=== PATIENT | female | born 1995 | race Caucasian/White ===

== ENCOUNTER 2023-08-21 18:54 | Outpatient (CLI) | payer BC, SELFPAY | END 2023-08-21 18:55 | disposition home or self-care (01) | PROVIDERS: PCP Family Medicine; Visit Provider Registered Nurse | DX: E04.9 Nontoxic goiter, unspecified (principal); Z13.220 Encounter for screening for lipoid disorders | CPT/HCPCS: 80061; 84439; 84443 ==

== ENCOUNTER 2023-08-28 15:38 | Outpatient (CLI) | payer BC, SELFPAY ==
--- NOTE | 2023-08-28 16:00 | CRLHL7_ITS ---
For Patients: As a result of the Century Cures Act, medical imaging exams and procedure reports are released immediately into your electronic medical record. You may view this report before your referring provider. If you have questions, please contact your health care provider. INDICATION: Nontoxic goiter TECHNIQUE: Conventional two-dimensional reaves-scale ultrasound of the thyroid gland. COMPARISON: None. FINDINGS: The thyroid gland is normal in size, shape and echogenicity. The right lobe measures 5.3 x 2.0 x 2.0 cm and the left lobe 5.3 x 1.8 x 1.5 cm. The isthmus measures 6 mm in thickness. IMPRESSION: Sonographically normal thyroid gland. Dictated by Darian Lopez MD @ 08/29/2023 9:22:06 AM (Electronically Signed)
== END 2023-08-28 15:39 | disposition home or self-care (01) ==
LOC: US 15:38
PROVIDERS: PCP Family Medicine; Visit Provider Registered Nurse
DX: E04.9 Nontoxic goiter, unspecified (principal)
CPT/HCPCS: 76536

== ENCOUNTER 2024-03-11 14:49 | Outpatient (CLI) | payer BC, SELFPAY ==
--- NOTE | 2024-03-11 15:00 | CRLHL7_ITS ---
For Patients: As a result of the Cures Act, medical imaging exams and procedure reports are released immediately into your electronic medical record. You may view this report before your referring provider. If you have questions, please contact your health care provider. INDICATION: First trimester scan, establish dates. COMPARISON: None. TECHNIQUE: Real-time reaves-scale imaging of the pelvis was performed. FINDINGS: Sonographic imaging demonstrates a single living intrauterine gestation. The embryo demonstrates a regular cardiac rate measuring 176 beats per minute. The embryo`s crown-rump length measurement of 2.5 cm corresponds to a gestational age of 9 weeks 1 day with a sonographic due date of 10/13/2024. There is a normal-appearing yolk sac. There are no gross abnormalities noted within the embryo at this early state of development. The gestational sac has a normal appearance. There is no evidence of a perigestational hemorrhage. The amount of fluid within the sac appears appropriate for gestational age. The cervix is closed. The myometrium appears normal. Bilateral simple ovarian cysts are present. There are no suspicious fluid collections noted in the cul-de-sac. IMPRESSION: Single living intrauterine with sonographic gestational age 9 weeks 1 day and sonographic due date of 10/13/2024. Dictated by Cesar Quiroz MD @ 03/12/2024 9:51:06 AM (Electronically Signed)
== END 2024-03-11 14:50 | disposition home or self-care (01) ==
PROVIDERS: PCP Family Medicine; Visit Provider Registered Nurse
DX: Z34.91 Encounter for supervision of normal pregnancy, unspecified, first trimester (principal); Z3A.09 9 weeks gestation of pregnancy
CPT/HCPCS: 76817; 86703; 86706; 86803; 86850; 86900; 86901; 87086; 87340; 87491; 87591

== ENCOUNTER 2024-03-11 16:01 | Outpatient (CLI) | payer BC, SELFPAY ==
[2024-03-11 23:12] LABS: Chlamydia DNA Amplified* NOT DETECTED (No Detected); GC DNA Amplified* NOT DETECTED (No Detected)
== END 2024-03-11 16:02 | disposition home or self-care (01) ==
PROVIDERS: PCP Family Medicine; Visit Provider Registered Nurse
DX: Z34.81 Encounter for supervision of other normal pregnancy, first trimester (principal)
CPT/HCPCS: 86592; 86703; 86704; 86706; 86762; 86787; 86803; 86850; 86900; 86901; 87086; 87340; 87491; 87591

== ENCOUNTER 2024-03-20 11:10 | Outpatient (CLI) | payer BC, SELFPAY | END 2024-03-20 11:11 | disposition home or self-care (01) | PROVIDERS: PCP Family Medicine; Visit Provider Obstetrics & Gynecology | DX: E03.8 Other specified hypothyroidism (principal) | CPT/HCPCS: 84439; 84443; 86376 ==

== ENCOUNTER 2024-04-29 15:08 | Outpatient (CLI) | payer BC, SELFPAY | END 2024-04-29 15:09 | disposition home or self-care (01) | LOC: NFLDREF 15:09 | PROVIDERS: PCP Family Medicine; Visit Provider Obstetrics & Gynecology | DX: E03.8 Other specified hypothyroidism (principal) | CPT/HCPCS: 84443 ==

== ENCOUNTER 2024-05-27 14:00 | Outpatient (CLI) | payer BC, SELFPAY ==
--- NOTE | 2024-05-27 14:00 | CRLHL7_ITS ---
For Patients: As a result of the Century Cures Act, medical imaging exams and procedure reports are released immediately into your electronic medical record. You may view this report before your referring provider. If you have questions, please contact your health care provider. INDICATION: Evaluate anatomy. COMPARISON: 03.11.24 TECHNIQUE: Real time reaves scale imaging of the fetus was performed as well as color Doppler analysis of the umbilical vessels. FINDINGS: Sonographic imaging demonstrates a single living intrauterine gestation. Fetus demonstrates a regular cardiac rate of 167 beats per minute. Fetus has a variable position. The placenta lies posteriorly without evidence of placenta previa. Placental edge is located 3.8 cm from the internal cervical os. Amniotic fluid volume appears normal. Single deepest vertical pocket: 4.6 cm. The cervix is closed and measures 4.9 cm in length. The composite ultrasound gestational age is calculated at 21 weeks 0 days with an estimated sonographic due date of 10/07/2024. The estimated weight is 375 grams which lies at the 79th %. The following biometric measurements were obtained: Biparietal diameter: 5.0 cm/21 weeks 1 day 84th% Head circumference: 18.3 cm/20 weeks 5 days 67th% Abdominal circumference: 15.8 cm/21 weeks 0 day 72nd% Femur length: 3.4 cm/20 weeks 3 days 55th% The HC/AC ratio measures: 1.15 range (1.06-1.25) On anatomic survey, there is a normal appearance of the cerebral ventricles, cavum septi pellucidi, cisterna magna and cerebellum. The nose, lips, and facial profile appear normal. The cervical, thoracic and lumbar spine are well visualized and appear normal. There is a normal four-chamber heart view and the left and right ventricular outflow tracts appear normal. The diaphragm appears normal. Incomplete fluid distention of the stomach. The kidneys and bladder also appear normal. There is a normal three-vessel cord and there is an eccentric cord insertion site. The four extremities appear normal. IMPRESSION: Sonographic gestational age 21 weeks 0 days and sonographic due date of 10/07/2024. Sonographic age 6 days ahead of the clinical age. Estimated weight 79th percentile. Abdominal circumference 72nd percentile. Incomplete fluid distention of the stomach. Remainder of the anatomic survey is normal. Short-term follow-up recommended. Dictated by Cesar Quiroz MD @ 05/28/2024 12:23:49 PM (Electronically Signed)
== END 2024-05-27 14:01 | disposition home or self-care (01) ==
LOC: US 14:01
PROVIDERS: PCP Family Medicine; Visit Provider Obstetrics & Gynecology
DX: Z34.92 Encounter for supervision of normal pregnancy, unspecified, second trimester (principal); Z3A.21 21 weeks gestation of pregnancy
CPT/HCPCS: 76805

== ENCOUNTER 2024-06-24 10:05 | Outpatient (CLI) | payer BC, SELFPAY ==
--- NOTE | 2024-06-24 10:15 | CRLHL7_ITS ---
For Patients: As a result of the Century Cures Act, medical imaging exams and procedure reports are released immediately into your electronic medical record. You may view this report before your referring provider. If you have questions, please contact your health care provider. INDICATION: stomach not seen on survey TECHNIQUE: Limited transabdominal two-dimensional reaves-scale ultrasound examination. COMPARISON: 05/27/2024 FINDINGS: There is a living fetus in cephalic lie with gestational age of 24 weeks 1 day by LMP and EDC of 10/13/2024. The heart rate is measured at 138 beats per minute and the rhythm appears regular. The amniotic fluid volume is within normal limits with single deepest pocket of 4.8 cm. The placenta is posterior and superior to the cervical os. There is no evidence of previa. The stomach is visualized appears within limits. The stomach appears to be on the same side heart. IMPRESSION: 1. Living fetus in cephalic lie with gestational age of 24 weeks 1 day by LMP and EDC of 10/13/2024. 2. Stomach visualized and within normal limits. Dictated by Darian Lopez MD @ 06/25/2024 7:53:56 AM (Electronically Signed)
== END 2024-06-24 10:06 | disposition home or self-care (01) ==
LOC: US 10:06
PROVIDERS: PCP Family Medicine; Visit Provider Obstetrics & Gynecology
DX: Z34.92 Encounter for supervision of normal pregnancy, unspecified, second trimester (principal); Z3A.24 24 weeks gestation of pregnancy
CPT/HCPCS: 76816

== ENCOUNTER 2024-07-21 09:41 | Outpatient (CLI) | payer BC, SELFPAY | END 2024-07-21 09:42 | disposition home or self-care (01) | PROVIDERS: PCP Family Medicine; Visit Provider Obstetrics & Gynecology | DX: Z34.83 Encounter for supervision of other normal pregnancy, third trimester (principal); Z67.41 Type O blood, Rh negative | CPT/HCPCS: 86592; 86850; J2791 ==

== ENCOUNTER 2024-08-11 04:59 | Emergency (ER) | payer BC, SELFPAY ==
--- OUTSIDE RECORDS SUMMARY | 2024-08-11 05:01 | XMS_ITS | Clinical Summary ---
Author Organization [facility] Address [place], [place] [address] Care Team Providers Care Machine Setter Automatic Name Role Phone Pcp, No Primary Care Provider Unavailabl e Allergies Active Allergy Reactions Criticality Noted Date Comments Fluoxetine Other - Describe In Comment Field Medium 08/15/2019 Suicidal thoughts Latex Rash 12/18/2006 Medications PNV with Ca,No.73-Iron-FA (TRINATE) 28 mg iron- 1 mg tablet Take 1 Tablet by mouth once daily. 08/08/2023 Active Active Problems Problem Noted Date Diagnosed Date Vitamin D deficiency 03/19/2020 Overview (08/08/2023): 03/16/2020: Vitamin D total 21, this is too low and may be contributing to decreased activity and possible depressive symptoms -We will treat with ergocalciferol 50,000 units weekly and recheck in 1 year Major depressive disorder, r ecurrent episode, in partial remission with anxious distress 09/26/2019 Panic attacks 09/26/2019 Class 1 obesity due to exces s calories without serious comorbidity with body mass index (BMI) of 34.0 to 34.9 in adult 09/08/2019 MDD (major depressive disord er), recurrent episode, moderate 11/03/2018 Moderate episode of recurrent major depressive d isorder 11/03/2018 Calculus of gallbladder with out cholecystitis without obstruction 04/15/2015 Comments Yes Resolved Problems Problem Noted Date Diagnosed Date Resolved Date Major depressive disorder, r ecurrent episode, mild 11/10/2014 10/31/2018 Adjustment reaction 10/19/2014 11/04/19 Health supervision of other healthy infant or child receiving care 07/01/2007 10/29/2015 Encounters Date Type Department Care Team Description 06/24/2024 Orders Only [facility] Scanner 1 scan: (1-Ord) [facility], OB F/U, 06/24/2024 05/27/2024 Orders Only [facility] Scanner 1 scan: (1-Ord) [facility], OB >14 WEEKS, 05/27/2024 from Last 3 Months Immunizations Name Administration Dates Next Due AMB Influenza, IIV3 (Age >=3 years)(Flu Clinic Only) 06/26/2008 DTP-HIB 03/03/1996,01/11/1996,1995 DTaP 09/06/2000,02/03/1997 HIB PRP-OMP (PedvaxHIB) 02/03/1997 Hep B (Hepatitis B (Adult) R ecombinant Adjuvanted) 10/12/2020,07/28/2020 Hepatitis A (Peds) 08/14/2011,01/05/2011 Hepatitis B (Peds) 03/03/1996,1995, 996 Human Papilloma Virus Vaccine 01/05/2011, 011,06/09/2010 Inactivated Polio Vaccine 09/06/2000 Influenza, IIV3 (Age 6-35 mos) 05/11/2011 Influenza, IIV3 (Age >=3 years) 05/07/20 13,05/07/2012,05/11/2011,06/09,06/26/2008,07/01/2007,09/05/2006 ,06/29/2003 Influenza, IIV4 05/16/2022,,07/09/2020,08/01,07/03/2017,06/08/2016,04/15/2015 MENINGOCOCCAL VACCINE 2 VIAL 2MO-55YO (MENVEO) 02/19/2014 MMR 11/04/1996 MMRV 07/01/2007 Oral Polio Vaccine 03/03/1996,01/11/1996, 996 Td (Age >=7 Years) 01/09/2019 Tdap 07/01/2007 Tuberculin (PPD) 01/10/2016, 6,01/11/2015,07/31 Varicella Vaccine 11/04/1996 Family History Medical History Relation Name Comments Alcoholism Father recovered Good Health Father Lung cancer Maternal Grandfather with me ts to brain Good Health Mother Relation Name Status Comments Brother Alive Father Alive Maternal Grandfather Maternal Grandmother Alive Mother Alive Other Paternal Grandfather Paternal Grandmother Sister Alive Social History Tobacco Use Types Packs/Day Years Used Date Smoking Tobacco: Never Passive Smoke Exposure: Never Smokeless Tobacco: Never Tobacco Cessation:Counseling Given: Yes Alcohol Use Standard Drinks/Week Comments Not Currently 0 (1 standard drink = 0.6 oz pur e alcohol) rarely PHQ-2 Answer Date Recorded PHQ-2 TOTAL SCORE 2 08/08/2023 Social Connections Answer Date Recorded Frequency of Communication with Friends and Fami ly Not on file 08/01/2023 Financial Resource Strain Answer Date R ecorded Difficulty of Paying Living Expenses Not on file 07/30/2021 Difficulty of Paying Living Expenses Not on file 07/30/2021 Interpersonal Safety Answer Date Record ed Are you being hit, kicked, p ushed or yelled at (see row info)? No 08/02/2023 Interpersonal Safety Abuse 12 - 18 Not on file 08/02/2023 Interpersonal Safety Ambulatory Vulnerability No t on file 08/02/2023 Comments Yes Sex and Gender Information Value Date Recorded Sex Assigned at Not on file Legal Sex Female 5:21 AM [employer] Gender Identity Not on file Sexual Orientation Not on file Occupation Industry Job Start Date Job End Date Not on file Not on file Not on file Not on file unemployed Not on file Not on file Not on file Obstetrics History Para Term AB IAB SAB Ectopic Multiple Livin g Live Births 1 0 0 0 0 0 0 0 0 0 Date Outcome GA Total Labor Labor/2nd/3rd Weight Sex Type Anes PTL Mikaela A1 A5 Name Clin Current Last Filed Vital Signs Vital Sign Reading Time Taken Comments Blood Pressure 118/70 08/08/2023 3:14 PM [employer] Pulse 74 08/08/2023 3:14 PM [employer] Temperature 37.2 C (99 F) 08/02/2023 4:20 AM [employer] Respiratory Rate 20 08/02/2023 4:20 AM [employer] Oxygen Saturation 100% 08/02/2023 6:00 AM [employer] Inhaled Oxygen Concentration - - Weight 107.5 kg (236 lb 14.4 oz) 08/08/2023 3:14 PM [employer] Height 175.3 cm (5' 9) 08/08/2023 3:14 PM [employer] Body Mass Index 34.98 08/08/2023 3:14 PM [employer] Plan of Treatment Health Maintenance Due Date Last Done Comments HIV for age 15-65 2010 Hepatitis C screening for age 18-79 2013 COVID-19 vaccine series ( season) 2024 09/27/2020, 09/01/2020 Influenza for age 9-49 03/30/2024 2, 05/24/2021, 07/09/2020, Additional history exists BMI (ht and wt on same day) for age 18+ 08/08/2024 08/08/2023, 08/01/2019, 06/06/2019, Additional history exists Depression screening for age 12+ 08/08/2024 08/08/2023, 08/04/2019, 08/01/2019, Additional history exists Pap test for age 21-65 05/15/2025 2 (Verified in Care Everywhere or Patient Record), 07/03/2017 Tetanus booster 01/09/2029 01/09/2019, 07/01/2007 RSV vaccine for adults or (1 - 1-dose 75+ series) 2070 Tdap Completed 07/01/2007 Pneumococcal series for age 6-49 Aged Out No longer eligible based on patient's age to complete this topic Procedures Procedure Name Priority Date/Time Associated Diagnosis Comments SCAN-ULTRASOUND REPORT 06/24/2024 12:00 AM [employer] SCAN-ULTRASOUND REPORT 05/27/2024 12:00 AM CDT INDUSTRY CONSULTANT THIN PREP PAP SCREEN IMAGED Routine 07/03/2017 8:20 AM [employer] Pap smear for cervical cancer screening from Last 3 Months or Most Recently Relevant to Health Maintenance Results * SCAN-ULTRASOUND REPORT (06/24/2024 12:00 AM [employer]) Only the most recent of2 resultswithin the time period is included. Anatomical Region Laterality Modality Other us Scanner OTHER Final Result * INDUSTRY CONSULTANT THIN PREP PAP SCREEN IMAGED (07/03/2017 8:20 AM [employer]) Case Report Gynecologic Cytology Report Case: [id number] Authorizing Provider: Lexx Murguia, Collected: 07/03/2017 0820 Ordering Location: [facility] Received: 07/03/2017 0957 Clinic First Screen: Jessica Wilson Specimen: INDUSTRY CONSULTANT ThinPrep Vial Screening, Cervical 07/11/2017 3:33 PM [employer] [facility] INTERPRETATION/ RESULT NEGATIVE FOR INTRAEPITHELIAL LESION OR MALIGNANCY (NIL) (none) 07/11/2017 3:33 PM [employer] [facility] [employer] [facility] IMEN ADEQUACY Satisfactory for evaluation Endocervical component present 07/11/2017 3:33 PM [employer] [facility] HPV REQUEST HPV if ASCUS 07/11/2017 3:33 PM [employer] [facility] Date of LMP 06/12/17 07/11/2017 3:33 PM [employer] [facility] Last Pap Date none 07/11/2017 3:33 PM [employer] [facility] Last Pap Result First Pap/Unknown 3:33 PM [employer] [facility] Abnormal Pap or [place] Bx in last 5 years No 07/11/2017 3:33 PM [employer] [facility] Menstrual Status Regular Periods 07/11/2017 3:33 PM [employer] [facility] [place] Bx Done Today No 07/11/2017 3:33 PM [employer] [facility] Additional Information None given 07/11/2017 3:33 PM [employer] [facility] Automated Review Successful 07/11/2017 3:33 PM [employer] [facility] Comment:Specimen processed s uccessfully by automated dispatch officer device, ThinPrep Imaging System, [employer] Note The pap test is a screening technique, not a diagnostic procedure. It is used primarily to screen for squamous cancers and precursor lesions. Published studies have shown that it is subject to both false negative and false positive results. The pap test should not be used as the sole means to diagnose or exclude pre-malignant and malignant lesions. Interpreted at [facility] ([facility], [facility], [facility], [facility], [facility], [facility], [facility]) 07/11/2017 3:33 PM [employer] [facility]ORY Other (Cervical) 07/03/2017 8:20 AM [employer] 07/03/2017 9:57 AM [employer] us Lexx Murguia MD PATHOLOGY/CYTOLOGY Fin al Result [facility] [address] [place] [address], from Last 3 Months or Most Recently Relevant to Health Maintenance Insurance [facility] [address] [place] [id number] [facility] ADVANTAGE WORKERS COMP Member Subscriber Plan / Payer (Ef fective 2015-Present) Name:Kita GOTTLIEB Relation to Subscriber:Employee Name:[employer] Date of :2000 (Home) Address: [address] [place] [address] Payer ID:Not on file Group ID:Not on file Type:Not on file Address: [place] [id number] Advance Directives * Full Code (Latest Code Status on File) Date Activated Date Inactivated Comments 04/27/2015 1:38 PM 04/27/2015 9:54 PM * Full Code Date Activated Date Inactivated Comments 04/27/2015 9:32 AM 04/27/2015 1:38 PM Care Teams Machine Setter Automatic Relationship Specialty Start Date End Date Pcp, No . PCP - General 07/13/23
--- OUTSIDE RECORDS SUMMARY | 2024-08-11 05:01 | XMS_ITS ---
Author Organization [facility] Address [address] [place] [address] Care Team Providers Care Director Nurses' Registry Name Role Phone Unavailable Unavailable Unavailable Surgery Details Not on file Complications Check Surgery Details section. Procedure Estimated Blood Loss Check Surgery Details section. Procedure Findings Check Surgery Details section. Procedure Specimens Taken Check Surgery Details section.
--- OUTSIDE RECORDS SUMMARY | 2024-08-11 05:01 | XMS_ITS | Continuity of Care Document ---
Author Name [facility] User [email or web address] Address Unknown Organization Unknown Address Unknown Procedures FILTER APPLIED:Only known Procedures with Onset Date within the last 5 years Procedure Date Procedure Provider Additional Inform ation Status US EXAM OF HEAD AND NECK (06479) Completed ASSAY OF FREE THYROXINE (89781) Completed LIPID PANEL (14821) Comp leted ASSAY THYROID STIM HORMONE (06234) Completed Encounters FILTER APPLIED:Only known Encounters with Admission Date within the last 5 years Encounter Location Admission Discharge Billing Code [facility]
--- OUTSIDE RECORDS SUMMARY | 2024-08-11 05:01 | XMS_ITS | Clinical Summary ---
Author Organization [facility] Address [address] [place] [address] Care Team Providers Care Occupational Health And Safety Manager Name Role Phone Billy Boudreaux D.O. Primary Care Provider [phone]- [phone] Source Comments Patient records contain information from all sites at [facility]. For routine questions regarding patient records, call [phone] during business hours, M-F 8:00 AM - 5:00 PM Central Time. Record requests for emergency care only can be directed to [phone] at any time.[facility] Allergies Active Allergy Reactions Criticality Noted Date Comments Fluoxetine Other (see comments) Medium 08/15/2019 Suicidal thoughts Latex Rash Medium 12/18/2006 Medications vit,louis [id number] 28 mg iron- 1 mg tablet Take 1 tablet by mouth daily. 08/08/2023 Active venlafaxine XR (Effexor-XR) 150 mg 24 hr capsule Take 150 mg by mouth every morning. 02/09/2024 Active doxylamine (Unisom) 25 mg tablet Take by mouth at bedtime as needed for sleep. Active pyridoxine, vitamin B6, (vitamin B-6) 50 mg tablet Take 50 mg by mouth daily. Active Active Problems Problem Noted Date Diagnosed Date Deficiency Vitamin D 03/19/2020 Overview (03/31/2021): 03/16/2020: Vitamin D total 21, this is too low and may be contributing to decreased activity and possible depressive symptoms -We will treat with ergocalciferol 50,000 units weekly and recheck in 1 year Depression Major Recurrent Moderate 11/03/2018 Immunizations Name Administration Dates Next Due 4vHPV (discontinued) 01/05/2011,08/29/2010,06/09 DTP / Hib 03/03/1996,01/11/1996,1995 DTaP (Infanrix, Tripedia) 09/06/2000,02/03/1997 HepA Pediatric/Adolescent 08/14/2011,01/05/2011 HepB Adult (HEPLISAV-B) 10/12/2020,07/28/2020 HepB Pediatric/Adolescent 03/03/1996,1995, 1995 Hib (PRP-OMP) (PedvaxHIB) 02/03/1997 IPV 09/06/2000 Influenza TIV (IM) 05/07/2013, 2,05/11/2011, 010,06/26/2008,07/01/2007,09/05/2006, Influenza, Seasonal, Injectable 05/07/20 13,05/07/2012,06/09/2010, 008,09/05/2006,07/15/2003 MCV4 (Menactra)(Discontinued) 02/19/2014, 014 MCV4 (Menveo) 02/19/2014,02/19/2014 MMR 11/04/1996 MMRV 07/01/2007 OPV 03/03/1996,01/11/1996,1995 PPD Test 01/10/2016, 6,12/21/2015, 016,01/11/2015,01/11/2015,07/31/1996,08/1996 SARS-COV-2 (COVID-19) - PFIZ ER (Discontinued)(12 years or older) 09/27/2020,09/01/2020 Td (Adult), adsorbed 01/09/2019 Tdap 07/01/2007 EMERITA 11/04/1996 influenza trivalent vaccine (6 months and older)(PF) 05/11/2011 influenza vaccine quad (FLUZONE/FLUARIX) (6 months and older)(PF) 05/16/2022,05/24/2021,07/09/2020, 020,07/03/2017,06/08/2016,04/15/2015 Family History Medical History Relation Name Comments ADD Brother Grant Alcohol abuse Brother Grant My brother has struggled with alcohol and drug abuse but has been sober for 10 months Drug abuse Brother Grant Struggled with drug abuse but has been sober for 10 months Alcohol abuse Father Armin My dad has str uggled with alcoholism for most of his life but he has been sober for 6 years Drug abuse Father Armin History of drug abuse but has been sober for 6 years Migraines Father Armin Suffered from m igraines for 6 years Sleep apnea Father Armin He has used a C -PAP machine for 5 years Other cancer Father's Brother Stephane Diagnosed w ith throat cancer in 2016 Ovarian cancer Father's Sister Paz Diagnosed 2016 Alcohol abuse Maternal Grandfather Cj Coronary artery disease Maternal Grandfather Cj from a heart attack in the late 1979 s Alcohol abuse Paternal Grandfather Praveen Lung cancer Paternal Grandfather Praveen Diagnos ed and past away from lung cancer in 2005 Dementia Paternal Grandmother Fallon She suf fered from dementia for several years and from it. Anxiety disorder Sister Lawanda Depression Sister Lawanda Relation Name Status Comments Brother Grant Funez Father's Brother Stephane Father's Sister Paz Maternal Grandfather Cj Paternal Grandfather Praveen Paternal Grandmother Fallon Sister Lawanda Social History Tobacco Use Types Packs/Day Years Used Date Smoking Tobacco: Never Smokeless Tobacco: Never Tobacco Cessation:Counseling Given: Not Answered Alcohol Use Standard Drinks/Week Comments Yes 1 (1 standard drink = 0.6 oz pur e alcohol) occasional [facility] Utilities Answer Date Recorded In the past 12 months has e [employer], gas, oil, or water [employer] threatened to shut off services in your home? No 02/28/2024 Humiliation, Afraid, Rape, and Kick questionnair e Answer Date Recorded Within the last year, have y ou been afraid of your partner or ex-partner? No 05/15/2022 Within the last year, have y ou been humiliated or emotionally abused in other ways by your partner or ex-partner? No Within the last year, have y ou been kicked, hit, slapped, or otherwise physically hurt by your partner or ex-partner? No 05/15/2022 Within the last year, have y ou been raped or forced to have any kind of sexual activity by your partner or ex-partner? No 05/15/2022 Social Connection and Isolat ion Panel [NHANES] Answer Date Recorded In a typical week, how many times do you talk on the phone with family, friends, or neighbors? More than three times a week 05/15/2022 How often do you get togethe r with friends or relatives? Once a week 05/15/2022 How often do you attend chur or methodist services? 1 to 4 times per year 05/15/2022 Do you belong to any clubs o r organizations such as rastafarian groups, unions, fraternal or athletic groups, or school groups? Yes 05/15/2022 How often do you attend meet ings of the clubs or organizations you belong to? More than 4 times per year 05/15/2022 Are you , , di vorced, , never , or living with a partner? Living with partner 05/15/2022 AUDIT-C Answer Date Recorded Q1: How often do you have a drink containing alc ohol? 2-4 times a month 05/15/2022 Q2: How many drinks containi ng alcohol do you have on a typical day when you are drinking? 3 or 4 05/15/2022 Q3: How often do you have si x or more drinks on one occasion? Less than monthly 05/15/2022 Overall Financial Resource Strain (CARDIA) Answe r Date Recorded How hard is it for you to pa y for the very basics like food, housing, medical care, and heating? Not hard at all 05/15/2022 PHQ-2 Answer Date Recorded PHQ-2 Score 0 08/17/2021 [facility] of Occupat ional Health - Occupational Stress Questionnaire Answer Date Recorded Do you feel stress - tense, restless, nervous, or anxious, or unable to sleep at night because your mind is troubled all the time - these days? Rather much 05/15/2022 Exercise Vital Sign Answer Date Recorde d On average, how many days pe r week do you engage in moderate to strenuous exercise (like a brisk walk)? 5 days 02/28/2024 On average, how many minutes do you engage in exercise at this level? 30 min 02/28/2024 Hunger Vital Sign Answer Date Recorded Within the past 12 months, y ou worried that your food would run out before you got the money to buy more. Never true 02/28/20 24 Within the past 12 months, t he food you bought just didn't last and you didn't have money to get more. Never true 02/28/2024 PRAPARE - Transportation Answer Date Re corded In the past 12 months, has l ack of transportation kept you from medical appointments or from getting medications? No 07/2023 In the past 12 months, has l ack of transportation kept you from meetings, work, or from getting things needed for daily living? No 02/28/2024 Depression Answer Date Recor ded PHQ-9 Total Score (max 27) 2 08/17 Nutrition Answer Date Recorded On average, how many serving s of fruits and vegetables do you eat per day (serving size is equal to 1 cup or approximately the size of a tennis ball)? 3-5 02/28/2024 Dental Answer Date Recorded Dental: Regular Dentist Yes 05/15/20 Employment Answer Date Recorded Employment status Employed and actively working without restrictions 02/28/2024 Housing Stability Answer Date Recorded What is your living situation today? I have a [facility] place to live 02/28/2024 Education Answer Date Recorded What is the highest level of school you have completed or the highest degree you have received? 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 Gender Identity Female 01/24/2021 8:38 AM CDT Sexual Orientation Not on file Last Filed Vital Signs Vital Sign Reading Time Taken Comments Blood Pressure 121/81 05/15/2022 2:17 PM CDT Pulse 62 05/15/2022 2:17 PM CDT Temperature 36.6 C (97.8 F) 05/15/2022 2:17 PM CDT Respiratory Rate 16 12/10/2020 9:16 AM CDT Oxygen Saturation 100% 12/10/2020 9:16 AM CDT Inhaled Oxygen Concentration - - Weight 101 kg (222 lb 0.1 oz) 05/15/2022 2:17 PM CDT Height 173 cm (5' 8.11) 05/15/2022 2:17 PM CDT Body Mass Index 33.65 05/15/2022 2:17 PM CDT Plan of Treatment Health Maintenance Due Date Last Done Comments HIV Screening 1995 Hepatitis C Screening 1995 Depression Monitoring (PHQ-9) 12/15/2021 08/17/2021 COVID-19 Vaccine ( season) 2024 09/27/2020, 09/01/2020 Influenza Vaccine (#1) 2024 , 05/16/2022, 05/24/2021, Additional history exists Depression Monitoring (PHQ-9 for quality tracking) 07/30/2024 Cervical/Vaginal Cancer Screening 05/15/2025 05/15/2022, 05/15/2022, 03/19/2020 DTaP,Tdap,and Td Vaccines (8 - Td or Tdap) 01/09/2029 01/09/2019, 07/01/2007, 09/06/2000, Additional history exists IPV Vaccines Completed 09/06/2000, 11/1995, 01/11/1996, Additional history exists Varicella Vaccines Completed 07/01/2007, 11/04/1996 HPV Vaccines Completed 01/05/2011, 08/01, 06/09/2010 Hepatitis B Vaccines Completed 10/12/2020, 07/28/2020, 03/03/1996, Additional history exists Pneumococcal vaccine (0-49 years) Aged Out No longer eligible based on patient's age to complete this topic Procedures Procedure Name Priority Date/Time Associated Diagnosis Comments HPV WITH GENOTYPING, PCR, THINPREP Routine 05/15/2022 2:47 PM CDT from Last 3 Months or Most Recently Relevant to Health Maintenance Results * HPV with Genotyping, PCR, ThinPrep (05/15/2022 2:47 PM CDT) HPV with Genotyping, ThinPrep, PCR Negative Negative 05/16/2022 3:32 PM CDT MKTO Comment: Negative for high risk HPV by nucleic acid amplification. The following high risk HPV types were not detected: 16, 18, 31, 33, 35, 39, 45, 51, 52, 56, 58, 59, 66, and 68 This result does not rule out HPV in the patient, as the sensitivity of the test depends on the timing of the specimen collection and the quality of the specimen. Result should be correlated with patient's history, clinical presentation, and EXHIBITOR SALES cytology report. 05/15/2022 2:47 PM CDT 05/16/2022 7:46 AM CDT us Natalia Cheung M.D. LAB MICROBIOLOGY - GENER AL ORDERABLES Final Result [facility] [address] [place] [address], [facility] MKTO [facility] [place] [address] [place] [id number] from Last 3 Months or Most Recently Relevant to Health Maintenance Insurance [facility] Care Teams Occupational Health And Safety Manager Relationship Specialty Start Date End Date Billy Boudreaux D.O. [address] [place] [place] [phone] PCP - General 04/27/23
--- OUTSIDE RECORDS SUMMARY | 2024-08-11 05:01 | XMS_ITS | Referral Summary ---
Author Organization [facility] Address [address] [place] [address] Care Team Providers Care Casino Floor Walker Name Role Phone Billy Boudreaux D.O. Primary Care Provider [phone]- [phone] Source Comments Patient records contain information from all sites at [facility]. For routine questions regarding patient records, call [phone] during business hours, M-F 8:00 AM - 5:00 PM Central Time. Record requests for emergency care only can be directed to [phone] at any time.[facility] Allergies Active Allergy Reactions Criticality Noted Date Comments Fluoxetine Other (see comments) Medium 08/15/2019 Suicidal thoughts Latex Rash Medium 12/18/2006 Medications vit,louis [id number] 28 mg iron- 1 mg tablet Take [...] (FLUZONE/FLUARIX) (6 months and older)(PF) 05/16/2022,05/24/2021,07/09/2020, 020,07/03/2017,06/08/2016,04/15/2015 Social History Tobacco Use Types Packs/Day Years Used Date Smoking Tobacco: Never Smokeless Tobacco: Never Tobacco Cessation:Counseling Given: Not Answered Alcohol Use Standard Drinks/Week Comments Yes 1 (1 standard drink = 0.6 oz pur e alcohol) occasional [facility] Utilities Answer Date Recorded In the past 12 months has e [employer], [employer], oil, or water [employer] threatened to shut off services in your [...] 05/15/2022 How often do you attend chur ch or christianity services? 1 to 4 times per year 05/15/2022 Do you belong to any clubs o r organizations such as episcopal groups, unions, fraternal or athletic groups, or [...] Answer Date Recorded PHQ-2 Score 0 08/17/2021 [facility] Occupat ional Health - Occupational Stress [...] your living situation today? I have a [facility] place to live 02/28/2024 Education Answer Date Recorded What is the highest level of school you have completed or the highest degree you have received? 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 05/15/2022 2:47 PM CDT 05/16/2022 7:46 AM CDT us Natalia Cheung M.D. LAB MICROBIOLOGY - GENER AL ORDERABLES Final Result [facility] [address] [place] [address], [place] MKTO [facility] [place] [address] [place] [address] from Last 3 Months or Most Recently Relevant to Health Maintenance Insurance [facility] Care Teams Casino Floor Walker Relationship Specialty Start Date End Date Billy Boudreaux D.O. [address] [place] [address] PCP - General 04/27/23
[2024-08-11 05:02] VITALS: BP 135/82; PULSE 82; RESP 18; TEMP 36.1; O2SAT 98; BMI 32.5
--- NOTE | 2024-08-11 05:26 | ED.GENADULT ---
HPI - General Adult General Date Seen: 08/11/24 Chief complaint: Nausea/Vomiting Stated complaint: Vomiting x3 days 31wks preg Time Seen by Provider: 08/11/24 05:13 History of Present Illness HPI narrative: Patient is a 29-year-old presenting at 31 weeks for vomiting. She has had problems with vomiting throughout this but it had been reasonably well controlled on Reglan at home. She says she has been under significant stress of late, her has had some infidelity and is no longer living with her at this time. She notes this is increasing her anxiety, she does take venlafaxine but is having more problems with anxiety and sleep and also with vomiting. She has not had abdominal pain, fevers, urinary symptoms. She has had 1 episode of diarrhea. She is concerned about dehydration and health of her baby. She typically uses Unisom to help with sleep but she says she has not been able to keep that down the past few days so she has only slept a few hours for the past couple of nights. She is here tonight with her sister. No alcohol or substance use. Related Data Home Medications ?Medication ?Instructions ?Recorded ?Confirmed docosahexaenoic acid 200 mg mg PO 08/21/23 08/04/24 capsule ( DHA) doxylamine succinate 25 mg tablet 25 mg PO QHS 03/11/24 08/04/24 (Unisom (doxylamine)) aspirin 81 mg tablet,delayed 81 mg PO QDAY 04/29/24 08/04/24 release omeprazole magnesium 20 mg 20 mg PO QDAY 06/24/24 08/04/24 tablet,delayed release (Prilosec OTC) Previous Rx's ?Medication ?Instructions ?Recorded venlafaxine 150 mg 150 mg PO QAM #90 caps 03/11/24 capsule,extended release 24 hr levothyroxine 25 mcg tablet 25 mcg PO QDAY #30 tabs 05/02/24 metoclopramide HCl 10 mg tablet 10 mg PO Q6H PRN nausea and 07/10/24 (Reglan) vomiting #60 tabs Allergies Allergy/AdvReac Type Severity Reaction Status Date / Time fluoxetine Allergy Severe Depression Verified 08/04/24 11:43 Latex, Natural Rubber AdvReac Severe Rash Verified 08/04/24 11:43 Review of Systems Status of ROS: Reports: 6 or more systems reviewed and unremarkable except as noted in History and below PFSH PFS Medical History Enlarged thyroid ?E04.9 - Nontoxic goiter, unspecified (ICD-10) Pyelonephritis ?N12 - Tubulo-interstitial nephritis, not specified as acute or chronic (ICD-10) Surgical History History of cholecystectomy ?Z90.49 - Acquired absence of other specified parts of digestive tract (ICD-10) Morrison teeth extracted ?K08.409 - Partial loss of teeth, unspecified cause, unspecified class (ICD-10) Family History Aunt Ovarian cancer Grandfather Lung cancer Alcohol dependence Cardiovascular disease Grandmother Alzheimers disease Dementia Father Alcohol dependence Sleep apnea Migraines Drug dependence Brother Alcohol dependence Drug dependence ADD (attention deficit disorder) Uncle Alcohol dependence Sister Depression Anxiety Social History 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, 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 What is your current living situation?: I presently have a place to live Problems where you live: no known problems In the past 12 months, utilities in danger of being shut off: no In past 12 months, lack of transportation kept you from medical appts, meetings, work, or getting things needed for daily living: no In the past 12 mos, have been you worried that your food would run out before you had money to buy more?: never true In the past 12 mos, the food you bought just didn't last and you didn't have money to buy more?: never true Do you use any of these nicotine containing products: None How often do you have a drink containing alcohol: never How often do you have six or more drinks on one occasion: Never AUDIT-C Alcohol total score: 0 Non-prescribed substance use: denies use How often does anyone, including family, friends and others, physically hurt you: never How often does anyone, including family, friends and others, insult or talk down to you: rarely How often does anyone, including family, friends and others, threaten you with harm: never How often does anyone, including family, friends and others, scream or curse at you: rarely service: No Health Related Social Needs: Other personal risk factors, not elsewhere classified (Z91.89) Exam Narrative: Exam Narrative: Vital signs reviewed In general, alert, nontoxic young woman. Head: Normocephalic, atraumatic. Eyes: Sclera clear. Pupils equal and reactive. ENT: Mucous membranes moist. Neck: Supple without adenopathy. Heart: Regular rate and rhythm without murmur. Lungs: Clear. No increased work of breathing, crackles or wheezes. Abdomen: Soft, nontender to palpation. Gravid. Extremities: Well perfused, pulses intact. No significant edema. Neurologic: Alert, conversant. Speech fluent, face symmetric. Moves all extremities equally. Skin: Warm, dry well perfused. Affect: Normal. Const: Vital Signs, click to edit/add: Vital Signs - 24 hr 08/11/24 05:02 Temperature 97.0 F L Pulse Rate [Left P ulse Oximeter] 82 Respiratory Rate 18 Blood Pressure [Ri ght Upper Arm] 135/82 Pulse Oximetry 98 Oxygen Delivery Me thod Room Air Documenting provider has reviewed patient's vital signs: yes Course Course ED Course: We placed an IV here. Checked a metabolic panel which is normal. She had a L of normal saline as well as 10 mg of metoclopramide. She is feeling improved. She was evaluated by OB. She was able to rest a little bit, would like to go home because she feels like she could sleep. Has not provided a UA yet. She does not have any urinary symptoms, vital signs and lab work is reassuring. Discussed that if she develops any new symptoms such as dysuria, fever she should have a UA checked. Otherwise, she can continue to use her Reglan. Discussed finding a therapist that she can talk with to help her through this stressful time. She can talk with [facility] about possible medication changes for anxiety. At this time I do not want to make changes without their input. Return any time for worsening or uncontrolled symptoms. Vital Signs Vital signs: Initial Vital Signs Temperature 97.0 F L 08/11/24 05:02 Temperature Source Temporal Artery Scan 08/11/24 05:02 Pulse Rate 82 08/11/24 05:02 Pulse Rhythm Regular 08/11/24 05:02 Respiratory Rate 18 08/11/24 05:02 Blood Pressure 135/82 08/11/24 05:02 Blood Pressure Mean 99 08/11/24 05:02 Blood Pressure Position Sitting 08/11/24 05:02 Pulse Oximetry 98 08/11/24 05:02 Oxygen Delivery Method Room Air 08/11/24 05:02 Vital Signs Temperature 97.0 F L 08/11/24 05:02 Pulse Rate 82 08/11/24 05:02 Respiratory Rate 18 08/11/24 05:02 Blood Pressure 135/82 08/11/24 05:02 Pulse Oximetry 98 08/11/24 05:02 Oxygen Delivery Method Room Air 08/11/24 05:02 Temperature 97.0 F L 08/11/24 05:02 Pulse Rate 82 08/11/24 05:02 Respiratory Rate 18 08/11/24 05:02 Blood Pressure 135/82 08/11/24 05:02 Pulse Oximetry 98 08/11/24 05:02 Oxygen Delivery Method Room Air 08/11/24 05:02 Medications Administered Medications: Discontinued Medications Generic Name Dose Route Start Last Admin Trade Name Freq PRN Reason Stop Dose Admin Sodium Chloride 1,000 mls @ 1,000 mls/hr 08/11/24 05:30 08/11/24 06:19 0.9 % Sodium Chloride 1000 Ml IV 08/11/24 06:29 Infused .Q1H JIMBO Infusion Metoclopramide HCl 10 mg/ 102 mls @ 306 mls/hr 08/11/24 05:23 08/11/24 06:19 Sodium Chloride IVPB 08/11/24 05:24 Infused ONCE ONE Infusion Medical Decision Making Lab Data Labs: Lab Results 08/11/24 Range/Units 05:30 Sodium 135 (135-149) mmol/L Potassium 3.6 (3.6-5.1) mmol/L Chloride 108 (96-114) mmol/L Carbon Dioxide 20 (20-32) mmol/L Anion Gap 7 (7-15) mEq/L BUN 8 (5-24) mg/dL Creatinine 0.6 (0.5-1.5) mg/dL Estimated Creat Clear 144.58 Estimated GFR 125 ml/min Glucose 92 (60-115) mg/dL Calcium 9.1 (8.4-10.6) mg/dL Discharge Plan Discharge Clinical Impression: Nausea and vomiting, , Anxiety Patient Disposition: Home, Self-Care Condition: Improved Instructions: Anxiety (ED) Additional Instructions: Continue to use your metoclopramide as needed. Please call [facility] today to discuss options for medication management of increased anxiety at this point near . Consider finding a therapist/counselor. We did not obtain a UA today, if you develop urinary symptoms, fevers, or if uncontrolled vomiting continues, this should be checked in the ER or at [facility] . Return at any time if you have significant abdominal pain, fevers, uncontrolled vomiting or other worsening. Prescriptions: No Action DHA 200 mg capsule PO Unisom (doxylamine) 25 mg tablet 25 mg PO QHS Patient Comments: pt cuts in half at bedtime. aspirin 81 mg tablet,delayed release (DR/EC) 81 mg PO QDAY omeprazole magnesium [Prilosec OTC] 20 mg tablet,delayed release (DR/EC) 20 mg PO QDAY venlafaxine 150 mg capsule,extended release 24hr 150 mg PO QAM Qty: 90 2RF levothyroxine 25 mcg tablet 25 mcg PO QDAY Qty: 30 3RF metoclopramide HCl [Reglan] 10 mg tablet 10 mg PO Q6H PRN (Reason: nausea and vomiting) Qty: 60 3RF Follow Up/Referrals: Alisa Drake CNP [Primary Care Provider] - Stand Alone Forms: [facility] Info Instructions
[2024-08-11] MEDS: 0.9 % SODIUM CHLORIDE 1000 ml 1,000 ML IV (05:27)
[2024-08-11] MEDS: METOCLOPRAMIDE HCL 10 MG in 0.9 % SODIUM CHLORIDE 100 ml 100 ML 306 MG IVPB (05:27)
--- NOTE | 2024-08-11 05:34 | ED.NURSE ---
OB called to do OB assessment
[2024-08-11 05:50] LABS: Chloride* 108 mmol/L (96-114)
[2024-08-11 05:51] LABS: Potassium* 3.6 mmol/L (3.6-5.1); Sodium* 135 mmol/L (135-149)
[2024-08-11 05:53] LABS: Creatinine* 0.6 mg/dL (0.5-1.5); Est. Creatinine Clearance* 144.58; Estimated Glomerular Filt Rate 125 ml/min
[2024-08-11 05:54] LABS: Anion Gap 7 mEq/L (7-15); Blood Urea Nitrogen* 8 mg/dL (5-24); Calcium* 9.1 mg/dL (8.4-10.6); Carbon Dioxide* 20 mmol/L (20-32); Glucose* 92 mg/dL (60-115)
--- NOTE | 2024-08-11 06:56 | PC.OBNST ---
NST Note NST Note Start: 08/11/24 06:29 Freq: ONCE Status: Discharge Protocol: Document 08/11/24 06:53 ALETA (Rec: 08/11/24 06:56 ALETA Desktop) NST Note 1 Para (# of births) 0 EDC 10/13/24 Gestational Age In Weeks & Days 31 Weeks & 0 Days Patient Presented with Complaint(s) of Nausea and vomiting Reactive Yes Appropriate for Gestational Age Yes RN Franki RN Date 08/11/24 Reactive Yes Appropriate for Gestational Age Yes RN Esperanza RN Date 08/11/24 OB NST charge Yes Complete NST Note via Write Note Yes The provider's electronic signature indicates the NST is reactive/appropriate for gestational age. *Note to provider: If an addendum is required, open the patient's chart and click on the note under the Nurse/Allied Health tab.
== END 2024-08-11 06:41 | disposition home or self-care (01) ==
LOC: ED 06:30
PROVIDERS: Emergency Provider Emergency Medicine; PCP Family Medicine
DX: R11.2 Nausea with vomiting, unspecified (principal); Z3A.31 31 weeks gestation of pregnancy; F41.9 Anxiety disorder, unspecified
CPT/HCPCS: 36415; 59025; 80048; 81001; 96365; 99284; J2765; J7030

== ENCOUNTER 2024-08-20 15:03 | Outpatient (CLI) | payer BC, SELFPAY ==
[2024-08-20 21:06] LABS: Chlamydia DNA Amplified* NOT DETECTED (No Detected); GC DNA Amplified* NOT DETECTED (No Detected)
== END 2024-08-20 15:04 | disposition home or self-care (01) ==
LOC: NFLDREF 15:03
PROVIDERS: PCP Family Medicine; Visit Provider Obstetrics & Gynecology
DX: Z11.3 Encounter for screening for infections with a predominantly sexual mode of transmission (principal)
CPT/HCPCS: 87491; 87591

== ENCOUNTER 2024-09-03 16:12 | Outpatient (CLI) | payer BC, SELFPAY | END 2024-09-03 16:13 | disposition home or self-care (01) | LOC: NFLDREF 09-10 00:01 | PROVIDERS: PCP Family Medicine; Referring Provider Family Medicine; Visit Provider Obstetrics & Gynecology | DX: Z34.93 Encounter for supervision of normal pregnancy, unspecified, third trimester (principal); F41.9 Anxiety disorder, unspecified; E03.8 Other specified hypothyroidism; Z3A.34 34 weeks gestation of pregnancy | CPT/HCPCS: 84443 ==

== ENCOUNTER 2024-09-14 05:54 | Emergency (ER) | payer BC, SELFPAY ==
[2024-09-14] VITALS (8 sets, daily range): BP systolic 129–140; BP diastolic 85–106; PULSE 90–102; RESP 18–20; TEMP 36.7; O2SAT 96–98; BMI 35.1
--- OUTSIDE RECORDS SUMMARY | 2024-09-14 05:56 | XMS_ITS | Clinical Summary ---
Author Organization [email or web address] Address [place], [place] [address] Care Team Providers Care Medical Legal Investigator Name Role Phone Pcp, No Primary Care [...] mild 11/10/2014 10/31/2018 Adjustment reaction 10/19/2014 11/04/19 19 Health supervision of other healthy or child receiving care 07/01/2007 10/29/2015 Encounters Date Type Department Care Team Description 06/24/2024 Orders Only [facility] Scanner 1 scan: (1-Ord) [facility], OB F/U, 06/24/2024 from Last 3 Months Immunizations Name Administration [...] on file Legal Sex Female 5:21 AM ELECTRIFIER OPERATOR Gender Identity Not on file Sexual Orientation [...] Comments Blood Pressure 118/70 08/08/2023 3:14 PM ELECTRIFIER OPERATOR Pulse 74 08/08/2023 3:14 PM ELECTRIFIER OPERATOR Temperature 37.2 C (99 F) 08/02/2023 4:20 AM ELECTRIFIER OPERATOR Respiratory Rate 20 08/02/2023 4:20 AM ELECTRIFIER OPERATOR Oxygen Saturation 100% 08/02/2023 6:00 AM ELECTRIFIER OPERATOR Inhaled Oxygen Concentration - - Weight 107.5 kg (236 lb 14.4 oz) 08/08/2023 3:14 PM ELECTRIFIER OPERATOR Height 175.3 cm (5' 9) 08/08/2023 3:14 PM ELECTRIFIER OPERATOR Body Mass Index 34.98 08/08/2023 3:14 PM ELECTRIFIER OPERATOR Plan of Treatment Health Maintenance Due Date [...] Diagnosis Comments SCAN-ULTRASOUND REPORT 06/24/2024 12:00 AM ELECTRIFIER OPERATOR COUNTER MAKER THIN PREP PAP SCREEN IMAGED Routine 07/03/2017 8:20 AM ELECTRIFIER OPERATOR Pap smear for cervical cancer screening from Last 3 Months or Most Recently Relevant to Health Maintenance Results * SCAN-ULTRASOUND REPORT (06/24/2024 12:00 AM ELECTRIFIER OPERATOR) Anatomical Region Laterality Modality Other us Scanner OTHER Final Result * COUNTER MAKER THIN PREP PAP SCREEN IMAGED (07/03/2017 8:20 AM ELECTRIFIER OPERATOR) Case Report Gynecologic Cytology Report Case: [id number] Authorizing Provider: Lexx Murguia, Collected: 07/03/2017 0820 Ordering Location: [facility] Received: 07/03/2017 0957 Clinic First Screen: Jessica Wilson Specimen: COUNTER MAKER ThinPrep Vial Screening, Cervical 07/11/2017 3:33 PM ELECTRIFIER OPERATOR [facility] INTERPRETATION/ RESULT NEGATIVE FOR INTRAEPITHELIAL LESION OR MALIGNANCY (NIL) (none) 07/11/2017 3:33 PM ELECTRIFIER OPERATOR [facility] IMEN ADEQUACY Satisfactory for evaluation Endocervical component present 07/11/2017 3:33 PM ELECTRIFIER OPERATOR [facility] HPV REQUEST HPV if ASCUS 07/11/2017 3:33 PM ELECTRIFIER OPERATOR [facility] Date of LMP 06/12/17 07/11/2017 3:33 PM ELECTRIFIER OPERATOR [facility] Last Pap Date none 07/11/2017 3:33 PM ELECTRIFIER OPERATOR [facility] Last Pap Result First Pap/Unknown 3:33 PM ELECTRIFIER OPERATOR [facility] Abnormal Pap or [place] Bx in last 5 years No 07/11/2017 3:33 PM ELECTRIFIER OPERATOR [facility] Menstrual Status Regular Periods 07/11/2017 3:33 PM ELECTRIFIER OPERATOR [facility] [place] Bx Done Today No 07/11/2017 3:33 PM ELECTRIFIER OPERATOR [facility] Additional Information None given 07/11/2017 3:33 PM ELECTRIFIER OPERATOR [facility] Automated Review Successful 07/11/2017 3:33 PM ELECTRIFIER OPERATOR [facility] Comment:Specimen processed s uccessfully by automated supply chain business analyst device, ThinPrep Imaging System, [employer] Note The pap test is a screening technique, not a diagnostic procedure. It is used primarily to screen for squamous cancers and precursor lesions. Published studies have shown that it is subject to both false negative and false positive results. The pap test should not be used as the sole means to diagnose or exclude pre-malignant and malignant lesions. Interpreted at [facility] ([facility], [facility], [facility], [facility], [facility], [facility], [facility]) 07/11/2017 3:33 PM ELECTRIFIER OPERATOR [facility] Other (Cervical) 07/03/2017 8:20 AM ELECTRIFIER OPERATOR 07/03/2017 9:57 AM ELECTRIFIER OPERATOR us Lexx Murguia MD PATHOLOGY/CYTOLOGY Fin al Result [facility] [address] [place] [address], from Last 3 Months or Most Recently Relevant to Health Maintenance Insurance [address] [place] [id number] [employer] [facility] [address] [place] [id number] [employer] [facility] ADVANTAGE WORKERS COMP Advance Directives * Full Code (Latest Code Status on File) Date Activated Date Inactivated Comments 04/27/2015 1:38 PM 04/27/2015 9:54 PM * Full Code Date Activated Date Inactivated Comments 04/27/2015 9:32 AM 04/27/2015 1:38 PM Care Teams Medical Legal Investigator Relationship Specialty Start Date End Date Pcp, No . PCP - General 07/13/23
--- OUTSIDE RECORDS SUMMARY | 2024-09-14 05:56 | XMS_ITS | Clinical Summary ---
Author Organization [facility] Address [address] [place] [address] Care Team Providers Care Feather Cutting Machine Feeder Name Role Phone Billy Boudreaux D.O. Primary Care Provider [phone]- [phone] Source Comments Patient records contain information from all sites at [facility]. For routine questions regarding patient records, call [phone] during business hours, M-F 8:00 AM - 5:00 PM Central Time. Record requests for emergency care only can be directed to [phone] at any time.[facility] Allergies Active Allergy Reactions Criticality Noted Date Comments Fluoxetine Other (see comments) Medium 08/15/2019 Suicidal thoughts Latex Rash Medium 12/18/2006 Medications vit,louis [id number] 28 mg iron- 1 mg tablet Take [...] year Depression Major Recurrent Moderate 11/03/2018 Immunizations Immunization Administration Dates Next Due 4vHPV (discontinued) 01/05/2011,08/29/2010,06/09 DTP / Hib 03/03/1996,01/11/1996,1995 DTaP (Infanrix, Tripedia) 09/06/2000,02/03/1997 HepA Pediatric/Adolescent 08/14/2011,01/05/2011 HepB Adult (HEPLISAV-B) 10/12/2020,07/28/2020 HepB Pediatric/Adolescent 03/03/1996,1995, 1995 Hib (PRP-OMP) (PedvaxHIB) 02/03/1997 IPV 09/06/2000 Influenza TIV (IM) 05/07/2013, 2,05/11/2011,2009,06/26/2008,07/01/2007,09/05/2006,1 09/15/2002 Influenza, Seasonal, Injectable 05/07/20 13,05/07/2012,06/09/2010,2007,09/05/2006,07/15/2003 MCV4 (Menactra)(Discontinued) 02/19/2014, 014 MCV4 (Menveo) 02/19/2014,02/19/2014 MMR 11/04/1996 MMRV 07/01/2007 OPV 03/03/1996,01/11/1996,1995 PPD Test 01/10/2016, 6,12/21/2015,2015,01/11/2015,01/11/2015,07/31/1996,0 07/31/1996 SARS-COV-2 (COVID-19) - PFIZ ER (Discontinued)(12 years or older) 09/27/2020,09/01/2020 Td (Adult), adsorbed 01/09/2019 Tdap 07/01/2007 EMERITA 11/04/1996 influenza trivalent vaccine (6 months and older)(PF) 05/11/2011 influenza vaccine quad (FLUZONE/FLUARIX) (6 months and older)(PF) 05/16/2022,05/24/2021,07/09/2020,2019,07/03/2017,06/08/2016,04/15/2015 Family History Medical History Relation Name Comments [...] = 0.6 oz pur e alcohol) occasional [facility] Utilities Answer Date Recorded In the past 12 months has e [employer], gas, oil, or water [employer] threatened to shut off services in your [...] How often do you attend chur or amish services? 1 to 4 times per year 05/15/2022 Do you belong to any clubs o r organizations such as amish groups, unions, fraternal or athletic groups, or [...] Answer Date Recorded PHQ-2 Score 0 08/17/2021 [facility] [place] of Occupat ional Health - Occupational Stress [...] your living situation today? I have a [facility] place to live 02/28/2024 Education Answer Date Recorded What is the highest level of school you have completed or the highest degree you have received? Some college, no degree 03/26/2021 Comments No Sex and Gender Information Value Date Recorded Sex Assigned at Not on file Legal Sex Female 10:42 AM ENVIRONMENTAL TECHNICIAN Gender Identity Female 01/24/2021 8:38 AM CDT [...] Health Maintenance Due Date Last Done Comments Depression Monitoring (PHQ-9) 1995 HIV Screening 1995 Hepatitis C Screening 1995 COVID-19 Vaccine ( season) 2024 09/27/2020, 09/01/2020 [...] correlated with patient's history, clinical presentation, and CITY SUPERINTENDENT cytology report. 05/15/2022 2:47 PM CDT 05/16/2022 7:46 AM CDT us Natalia Cheung M.D. LAB MICROBIOLOGY - GENER AL ORDERABLES Final Result [facility] [address] [place] [address], [facility] [place] [address] [place] [address] from Last 3 Months or Most Recently Relevant to Health Maintenance Insurance [facility] [place] [address] Care Teams Feather Cutting Machine Feeder Relationship Specialty Start Date End Date Billy Boudreaux D.O. [address] [place] [address] PCP - General 04/27/23
--- NOTE | 2024-09-14 06:21 | ED.GENADULT ---
HPI - General Adult General Chief complaint: Unspecified Complaint, Adult Stated complaint: , full body shakes/hot flashes Time Seen by Provider: 09/14/24 06:05 History of Present Illness HPI narrative: called call center operations manager OB, told to come get checked out. pt has full body shaking and diarrhea with nausea and sore throat. started last night. around 36wk , SONJA october 13, sees [facility] OB. feels normal baby movement, denies concerns . pt states shes anxious and worried. 29-year-old young woman presenting to the emergency department with concern of hot flashes and shakes and sore throat. She has had a couple episodes of diarrhea tonight. I walk into the room as she is just vomited. Is currently 36 weeks . Has had quite a bit of stress experience lately. Parents are snow birds she is home alone this she is found of very recently that her has been having an affair. She has does not know what her life will look like now at this point. This is 1st . Called into triage and was told to come in and get checked out. She is pretty sure it is anxiety and she did try to deep breathe at away for a couple of hours at home. Was increased recently on venlafaxine. Yesterday she think she encountered more triggers and affected her more than she was anticipating. Father is in [place]. Mother in [place]. No other sister in [place] and a sister has accompanied her to some of her appointments lives in [place]. Anticipating spending next we can together. Does have OB follow-up middle of next week. Synagogue and mid week [facility]- related activity has been helpful. Related Data Home Medications ?Medication ?Instructions ?Recorded ?Confirmed docosahexaenoic acid 200 mg mg PO 08/21/23 09/03/24 capsule ( DHA) doxylamine succinate 25 mg tablet 25 mg PO QHS 03/11/24 09/03/24 (Unisom (doxylamine)) aspirin 81 mg tablet,delayed 81 mg PO QDAY 04/29/24 09/03/24 release omeprazole magnesium 20 mg 20 mg PO QDAY 06/24/24 09/03/24 tablet,delayed release (Prilosec OTC) hydroxyzine pamoate 25 mg capsule 25 - 50 mg PO QHS PRN 09/03/24 Previous Rx's ?Medication ?Instructions ?Recorded levothyroxine 25 mcg tablet 25 mcg PO QDAY #30 tabs 05/02/24 metoclopramide HCl 10 mg tablet 10 mg PO Q6H PRN nausea and 07/10/24 (Reglan) vomiting #60 tabs venlafaxine 225 mg tablet,extended 225 mg PO QDAY #30 tabs 09/11/24 release 24 hr Allergies Allergy/AdvReac Type Severity Reaction Status Date / Time fluoxetine Allergy Severe Depression Verified 09/03/24 14:51 Latex, Natural Rubber AdvReac Severe Rash Verified 09/03/24 14:51 Review of Systems Status of ROS: Reports: 6 or more systems reviewed and unremarkable except as noted in History and below PFSH [facility] Medical History Enlarged thyroid ?E04.9 - Nontoxic goiter, unspecified (ICD-10) Pyelonephritis ?N12 - Tubulo-interstitial nephritis, not specified as acute or chronic (ICD-10) Surgical History History of cholecystectomy ?Z90.49 - Acquired absence of other specified parts of digestive tract (ICD-10) [place] teeth extracted ?K08.409 - Partial loss of teeth, unspecified cause, unspecified class (ICD-10) Family History Aunt Ovarian cancer Grandfather Lung cancer Alcohol dependence Cardiovascular disease Grandmother Alzheimers disease Dementia Father Alcohol dependence Sleep apnea Migraines Drug dependence Brother Alcohol dependence Drug dependence ADD (attention deficit disorder) Uncle Alcohol dependence Sister Depression Anxiety Social History 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, 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 What is your current living situation?: I presently have a place to live Problems where you live: no known problems In the past 12 months, utilities in danger of being shut off: no In past 12 months, lack of transportation kept you from medical appts, meetings, work, or getting things needed for daily living: no In the past 12 mos, have been you worried that your food would run out before you had money to buy more?: never true In the past 12 mos, the food you bought just didn't last and you didn't have money to buy more?: never true Do you use any of these nicotine containing products: None How often do you have a drink containing alcohol: never How often do you have six or more drinks on one occasion: Never AUDIT-C Alcohol total score: 0 Non-prescribed substance use: denies use How often does anyone, including family, friends and others, physically hurt you: never How often does anyone, including family, friends and others, insult or talk down to you: rarely How often does anyone, including family, friends and others, threaten you with harm: never How often does anyone, including family, friends and others, scream or curse at you: rarely service: No Health Related Social Needs: Other personal risk factors, not elsewhere classified (Z91.89) Exam Narrative: Exam Narrative: I enter the room to find a emesis bag with a copious amount of vomitus in it. She is apologetic. General tremulous. Appears to have been a little tearful. Face is flushed. Abdomen is appropriately gravid. Nontender. Extremities are well perfused without edema. Heart in elevated rate and regular rhythm. Oropharynx is moist in faintly erythematous posteriorly. No significant swelling. Const: Vital Signs, click to edit/add: Vital Signs - 24 hr 09/14/24 06:00 09/14/24 06:04 09/14/24 06:05 Temperature 98.0 F Pulse Rate [Pulse Oximeter] 98 102 H 98 Respiratory Rate 18 18 20 Blood Pressure [Le ft Upper Arm] 140/106 H 139/103 H 139/103 H Pulse Oximetry 97 98 97 Oxygen Delivery Me thod Room Air Room Air Room Air 09/14/24 07:25 09/14/24 07:30 Temperature Pulse Rate [Pulse Oximeter] 98 100 Respiratory Rate 18 20 Blood Pressure [Le ft Upper Arm] 129/95 H 138/93 H Pulse Oximetry 97 96 Oxygen Delivery Me thod Room Air Room Air Documenting provider has reviewed patient's vital signs: yes Course Vital Signs Vital signs: Initial Vital Signs Pulse Rate 98 09/14/24 06:00 Respiratory Rate 18 09/14/24 06:00 Respiratory Effort Normal, Spontaneous, Non-Labored 09/14/24 06:00 Respiratory Depth Normal 09/14/24 06:00 Respiratory Pattern Normal 09/14/24 06:00 Blood Pressure 140/106 H 09/14/24 06:00 Blood Pressure Mean 117 H 09/14/24 06:00 Blood Pressure Position Sitting 09/14/24 06:00 Pulse Oximetry 97 09/14/24 06:00 Oxygen Delivery Method Room Air 09/14/24 06:00 Vital Signs Pulse Rate 98 09/14/24 06:00 Respiratory Rate 18 09/14/24 06:00 Blood Pressure 140/106 H 09/14/24 06:00 Pulse Oximetry 97 09/14/24 06:00 Oxygen Delivery Method Room Air 09/14/24 06:00 Temperature 98.0 F 09/14/24 06:04 Pulse Rate 90 09/14/24 09:00 Respiratory Rate 18 09/14/24 09:00 Blood Pressure 129/86 09/14/24 09:00 Pulse Oximetry 97 09/14/24 09:00 Oxygen Delivery Method Room Air 09/14/24 09:00 Medications Administered Medications: Discontinued Medications Generic Name Dose Route Start Last Admin Trade Name Rigobertoq PRN Reason Stop Dose Admin Sodium Chloride 1,000 mls @ 1,000 mls/hr 09/14/24 06:34 09/14/24 13:31 0.9 % Sodium Chloride 1000 Ml IV 09/14/24 07:33 Infused .Q1H ONE Infusion Lorazepam 0.5 mg 09/14/24 07:33 09/14/24 07:41 Lorazepam 2 Mg/Ml Inj IVP 09/14/24 07:34 0.5 mg ONCE ONE Administration Ondansetron HCl 4 mg 09/14/24 06:34 09/14/24 07:21 Ondansetron 2 Mg/Ml Inj IVP 09/14/24 06:35 4 mg ONCE ONE Administration Medical Decision Making MDM Narrative Medical decision making narrative: I do think that anxiety is contributed to this event here today. Will try to hydrate and give antiemetic and reassess. Monitor vitals. Blood pressure elevated on arrival though I do not think this is baseline. Certainly concerned then of preeclampsia Considering community prevalence check for COVID and influenza. With sore throat, strep as well the simply could be related to anxiety and/or vomiting. Given IV hydration Zofran. Improved but still tremulous intense on reassessment. I think a dose of Ativan would be beneficial. Discussed with OB on-call and approved for dosing. Further improved on reassessment. Much less tremulous. Does have hydroxyzine available that could take. She thinks maybe was misunderstanding and using this primarily as a sleep aid; I think this might be more beneficial for anxiety. She feels she has enough tabs available to get to mid week OB appointment. See patient discharge plan for further discussion I am sorry you are are going through all of this. Sounds as though you are being very thoughtful however; establishing good relationships of friendship and support. You do have hydroxyzine available. Can take up to 50 mg 3 times daily as needed for anxious feelings. Please follow-up with your OB appointment next week as scheduled. Plan something fun to do this week with friends or family. Lab Data Lab results reviewed: Yes I reviewed the patient's lab results Labs: Lab Results 09/14/24 09/14/24 Range/Units 06:00 07:15 SARS-CoV-2 (PCR) Negative SARS-CoV-2 (Negative) Influenza Type A (PCR) Negative PCR FLU A (Negative) Influenza Type B (PCR) Negative PCR FLU B (Negative) RSV (PCR) Negative PCR RSV (Negative) Group A Strep DNA NOT DETECTED (Not Detectd) Discharge Plan Discharge Clinical Impression: Anxiety Patient Disposition: Home w/ Parent or Adult Condition: Improved Instructions: Anxiety (ED) Additional Instructions: I am sorry you are are going through all of this. Sounds as though you are being very thoughtful however; establishing good relationships of friendship and support. You do have hydroxyzine available. Can take up to 50 mg 3 times daily as needed for anxious feelings. Please follow-up with your OB appointment next week as scheduled. Plan something fun to do this week with friends or family. Prescriptions: No Action DHA 200 mg capsule PO Unisom (doxylamine) 25 mg tablet 25 mg PO QHS Patient Comments: pt cuts in half at bedtime. hydroxyzine pamoate 25 mg capsule 25 - 50 mg PO QHS PRN aspirin 81 mg tablet,delayed release (DR/EC) 81 mg PO QDAY omeprazole magnesium [Prilosec OTC] 20 mg tablet,delayed release (DR/EC) 20 mg PO QDAY levothyroxine 25 mcg tablet 25 mcg PO QDAY Qty: 30 3RF metoclopramide HCl [Reglan] 10 mg tablet 10 mg PO Q6H PRN (Reason: nausea and vomiting) Qty: 60 3RF venlafaxine 225 mg tablet extended release 24hr 225 mg PO QDAY Qty: 30 0RF Follow Up/Referrals: Alisa Drake CNP [Primary Care Provider] - Stand Alone Forms: [employer] Info Instructions
[2024-09-14 06:47] LABS: PCR FLU A Negative PCR FLU A (Negative); PCR FLU B Negative PCR FLU B (Negative); PCR RSV Negative PCR RSV (Negative); SARS PCR* Negative SARS-CoV-2 (Negative)
[2024-09-14] MEDS: 0.9 % SODIUM CHLORIDE 1000 ml 1,000 ML IV (07:20)
[2024-09-14] MEDS: ONDANSETRON 2 MG/ML inj 4 MG IVP (07:21)
[2024-09-14] MEDS: LORazepam 2 MG/ML inj 0.5 MG IVP (07:41)
[2024-09-14 07:49] LABS: Strep A DNA Probe* NOT DETECTED (Not Detectd)
--- OUTSIDE RECORDS SUMMARY | 2024-09-14 09:01 | XMS_ITS | Clinical Summary ---
Author Organization [facility] Address [address] [place] [address] Care Team Providers Care Parts Cataloguer Name Role Phone Billy Boudreaux D.O. Primary Care Provider [phone]- [phone] Source Comments Patient records contain information from all sites at [facility]. For routine questions regarding patient records, call [phone] during business hours, M-F 8:00 AM - 5:00 PM Central Time. Record requests for emergency care only can be directed to [phone] at any time.[facility] Allergies Active Allergy Reactions Criticality Noted Date Comments Fluoxetine Other (see comments) Medium 08/15/2019 Suicidal thoughts Latex Rash Medium 12/18/2006 Medications vit,louis 23-ajxl-ngign 28 mg iron- 1 mg tablet Take [...] = 0.6 oz pur e alcohol) occasional [facility] Utilities Answer Date Recorded In the past 12 months has e [employer], gas, oil, or water [employer] threatened to shut off services in your [...] How often do you attend chur or bahai services? 1 to 4 times per year 05/15/2022 Do you belong to any clubs o r organizations such as buddhism groups, unions, fraternal or athletic groups, or [...] Answer Date Recorded PHQ-2 Score 0 08/17/2021 [facility] [place] of Occupat ional Health - Occupational Stress [...] your living situation today? I have a [facility] place to live 02/28/2024 Education Answer Date Recorded What is the highest level of school you have completed or the highest degree you have received? 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 05/15/2022 2:47 PM CDT 05/16/2022 7:46 AM CDT us Natalia Cheung M.D. LAB MICROBIOLOGY - GENER AL ORDERABLES Final Result [facility] [address] [place] [address], [facility] [place] [address] [place] [address] from Last 3 Months or Most Recently Relevant to Health Maintenance Insurance [facility] Care Teams Parts Cataloguer Relationship Specialty Start Date End Date Billy Boudreaux D.O. [address] [place] [address] PCP - General 04/27/23
== END 2024-09-14 09:40 | disposition home or self-care (01) ==
LOC: ED 08:59
PROVIDERS: Emergency Provider Family Medicine; PCP Family Medicine
DX: F41.9 Anxiety disorder, unspecified (principal); Z33.1 Pregnant state, incidental; Z3A.36 36 weeks gestation of pregnancy; Z63.0 Problems in relationship with spouse or partner
CPT/HCPCS: 87631; 87651; 96361; 96374; 96375; 99284; J2060; J2405; J7030

== ENCOUNTER 2024-09-17 15:10 | Outpatient (CLI) | payer BC, SELFPAY ==
[2024-09-18 14:39] LABS: Strep B DNA Probe Negative (Negative)
[2024-09-18 15:37] LABS: Strep B Susceptibility Needed? No
== END 2024-09-17 15:11 | disposition home or self-care (01) ==
LOC: NFLDREF 15:15
PROVIDERS: PCP Family Medicine; Visit Provider Obstetrics & Gynecology
DX: Z34.93 Encounter for supervision of normal pregnancy, unspecified, third trimester (principal); Z3A.36 36 weeks gestation of pregnancy
CPT/HCPCS: 87081; 87653

== ENCOUNTER 2024-09-23 12:16 | Inpatient (IN) | payer BC, SELFPAY ==
[2024-09-23 13:18] LABS: Hematocrit 36.1 % (33.0-51.0); Mean Corpuscular HGB Conc 33 gm/dL (32-36); Mean Corpuscular Hemoglobin 30 pg (26-34); Mean Corpuscular Volume 90 fL (80-100); Platelet Count* 190 K/uL (140-440); Red Blood Count 4.03 m/uL (4.00-5.20)
[2024-09-23 13:24] VITALS: BMI 35.2
[2024-09-23 13:30] LABS: Alanine Aminotransferase* 16 U/L (4-35); Aspartate Amino Transferase* 24 U/L (12-35); Blood Urea Nitrogen* 5 mg/dL (5-24); Creatinine* 0.8 mg/dL (0.5-1.5); Est. Creatinine Clearance* 108.44; Estimated Glomerular Filt Rate 102 ml/min
[2024-09-23 13:34] VITALS: BP 143/97; PULSE 229; PULSE 85; RESP 16; TEMP 37.2; O2SAT 79
[2024-09-23 13:46] LABS: Total Protein Urine 25 mg/dL
[2024-09-23 13:49] LABS: Slide Review Reflex No
--- NOTE | 2024-09-23 13:56 | P.LDBA_ITS ---
Subjective History of Present Illness Date Seen: 09/23/24 Narrative: Patient is being admitted to Labor and Delivery for induction of labor. She is a 29 year old woman at 37 weeks, 1 day gestation. She was diagnosed today with gestational HTN. Her full history and physical was dictated by in clinic today. Please see this for details. Specific Issues/Plans G 2 P 0010 H&P by CGM 09/23/24 # Gestational HTN diagnosed 37 1/ weeks #Acute grief - separation from due to infidelity around 30 weeks # Anxiety (on 150mg daily historically) # Panic attacks leading to ED visits - Effexor increased to 225mg daily - Added buspirone 5 mg BID for anxiety/depression on 09/17 - Hydroxyzine PRN for panic attacks, offered short course of low dose Ativan - declined on 09/17 but advised to call if desired - Passive, transient SI previously - no SI currently, safety plan in place - Newly engaged in talk therapy - Undecided on labor plan regarding FOB attending delivery # BMI 33.6 -Hemoglobin A1c: 5.1% on 03/11/2024 -Daily baby aspirin starting at 12 weeks # Nausea and vomiting of . Failed Promethazine and Zofran, doing better with Reglan- 04/29/24 # Rh negative. Rhogam: 07/21/24 # Subclinical hypothyroidism. * TSH 4.520, normal free T4 on 08/21/2023 * Thyromegaly noted on exam on 08/21/2023, with subsequent normal thyroid ultrasound 08/28/2023 * Repeat TSH, free T4, and TPO on 03/20: TSH 5.1, free T4 1.06. TPO negative * Begin levothyroxine 25 mcg daily 03/22. * Repeat TSH, free T4 in one month: TSH 2.0 Covid: Completed, not up-to-date. Recommended. FLU: 04/29/24 RSV: 09/03/24 TDAP: 08/04/2024 Rhogam: 07/21/2024 GBS negative OB - Problem Based A/P Additional Plan (1) Gestational hypertension: Status: Acute Plan: Currently without severe features Plan Induction of labor. Cook catheter placed at 2:15 p.m. Low-dose Pitocin to begin at 9:00 p.m.. Delivery/Labor/Induction Plan Induction method: Intracervical balloon catheter OB Result Labs Labs: Labs today: Hemoglobin 12.0, platelets 190 BUN 5, creatinine 0.8 AST 24, ALT 16 Protein to creatinine ratio pending OB Exam Physical Exam Vital signs: Temp Pulse Resp BP Pulse Ox 98.9 F 85 16 143/97 H 79 L 09/23/24 13:34 09/23/24 13:34 09/23/24 13:34 09/23/24 13:34 09/23/24 13:34 Narrative: Physical exam: Vitals as noted above. General: No acute distress Psych: Alert and oriented x 3, full affect HEENT: Normocephalic, atraumatic Abdomen: Soft, nontender, gravid, cephalic lie Pelvic exam: Cervix is 1.5 cm, long, high, anterior, and firm. Using aseptic technique, Cook catheter is placed and both the intrauterine and intravaginal balloons were inflated to 60 mL tracing: Baseline 140, accelerations present, no definite deceleration though there is a run of marked variability; primarily moderate variability. Contractions are infrequent.
[2024-09-23 14:02] LABS: Creatinine Urine 60.9 mg/dL; Protein Creatinine Ratio Urine 0.41 (0-0.19)
[2024-09-23 14:23] VITALS: BP 139/96; PULSE 78; PULSE 79; PULSE 83; O2SAT 94; O2SAT 97
[2024-09-23 17:20] VITALS: BP 148/92; PULSE 77
[2024-09-23 19:22] VITALS: BP 140/92; PULSE 84; TEMP 37.1
[2024-09-23] MEDS: OXYTOCIN 30 unit/500 ML in NS 30 UNIT/500 ML BAG IVPB (21:33)
[2024-09-23] MEDS: LACTATED RINGERS 1000 ML 1,000 ML 35 ML IV (21:33)
[2024-09-23 21:41] VITALS: BP 133/77; PULSE 72
[2024-09-23] MEDS: hydrOXYzine pamoate 25 MG CAPSULE 100 MG PO (23:50)
[2024-09-23] MEDS: MORPHINE 10 MG/ML inj IM (23:50)
[2024-09-24] VITALS (198 sets, daily range): BP systolic 85–189; BP diastolic 51–103; PULSE 66–133; RESP 16–20; TEMP 36.4–37.2; O2SAT 93–100
[2024-09-24] MEDS: METOCLOPRAMIDE 10 MG TABLET PO ×2 (04:28→16:29)
--- NOTE | 2024-09-24 07:15 | PM.OBPNL ---
Subjective Time Seen by Provider: 07:15 Date Seen: 09/24/24 Narrative: Kita is a 29yo at 37w2d GA admitted for IOL in the setting of preeclampsia without severe features. otherwise is complicated by anxiety, panic attacks, subclinical hypothyroidism, elevated BMI and Rh negative. IOL has included cook catheter and pitocin. Kita is feeling well this morning. Contractions occur every 7-8 minutes, rated 4 out of ten. No vaginal bleeding or leaking of fluids. Noticed some discomfort when laying back for exam like a pop. Endorses active movement. No headache, vision changes or RUQ pain. Objective Exam: General: Alert and oriented, in no acute distress Psych: Appropriate mood and affect Abdomen: Gravid, non-tender Cervix: 5/80/-1, where with gentle elevation of head there is leaking of clear fluid. Suspect SROM immediately prior to exam (pain, pop sensation). FHR: Category 1, baseline of 130bpm with moderate variability. 15x15 accelerations. No decelerations. [place]: Not picking up contractions at this time, q7-8minutes by patient report Vital Signs: Last Vital Signs Temp 98.5 F 09/24/24 00:05 Pulse 81 09/24/24 04:03 Resp 16 09/23/24 13:34 BP 119/64 09/24/24 04:03 Pulse Ox 97 09/23/24 14:23 Plan Plan: Kita is a 29yo at 37w2d GA admitted for IOL in the setting of preeclampsia without severe features. otherwise is complicated by anxiety, panic attacks, subclinical hypothyroidism, elevated BMI and Rh negative. - IOL has included cook (spontaneously expressed around 2300) and pitocin overnight, now at 12mu/min. Exam was 5/80/-1, with SROM for clear fluid immediately prior to exam. - Kita is coping well thus far, lots of family support present throughout the day yesterday - BP monitoring ongoing, BPs have been in the normal to mild range overnight. Normal HELLP labs on admission, repeat as clinically indicated. Asymptomatic with no signs/symptoms of severe features. - Anticipate next exam in 4 hours, sooner as clinically indicated - BT O negative, plan cord blood at time of delivery and Rhogam per protocol - GBS negative
[2024-09-24] MEDS: CALCIUM CARBONATE 500 MG CHEW PO (07:51)
[2024-09-24] MEDS: LIDOCAINE 2% (PF) 5 ML VIAL EPIDURAL (10:36)
[2024-09-24] MEDS: fentaNYL 250 MCG/5 ML inj 100 MCG EPIDURAL (10:55)
[2024-09-24] MEDS: LABETALOL HCL 5 MG/ML inj IVP ×3 (11:00→19:45)
[2024-09-24] MEDS: ROPIVACAINE 0.2% 100 ml 100 ML 12 MG EPIDURAL (11:05)
[2024-09-24] MEDS: LACTATED RINGERS 1000 ML 1,000 ML IV (11:14)
--- NOTE | 2024-09-24 11:15 | PM.ANBPRC ---
[facility] Medical History Enlarged thyroid ?E04.9 - Nontoxic goiter, unspecified (ICD-10) Pyelonephritis ?N12 - Tubulo-interstitial nephritis, not specified as acute or chronic (ICD-10) Surgical History History of cholecystectomy ?Z90.49 - Acquired absence of other specified parts of digestive tract (ICD-10) [place] teeth extracted ?K08.409 - Partial loss of teeth, unspecified cause, unspecified class (ICD-10) Family History Aunt Ovarian cancer Grandfather Lung cancer Alcohol dependence Cardiovascular disease Grandmother Alzheimers disease Dementia Father Alcohol dependence Sleep apnea Migraines Drug dependence Brother Alcohol dependence Drug dependence ADD (attention deficit disorder) Uncle Alcohol dependence Sister Depression Anxiety Social History 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[employer], 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 What is your current living situation?: I presently have a place to live Problems where you live: no known problems In the past 12 months, utilities in danger of being shut off: no In past 12 months, lack of transportation kept you from medical appts, meetings, work, or getting things needed for daily living: no In the past 12 mos, have been you worried that your food would run out before you had money to buy more?: never true In the past 12 mos, the food you bought just didn't last and you didn't have money to buy more?: never true Smoking Status: Never smoker Do you use any of these nicotine containing products: None How often do you have a drink containing alcohol: never How often do you have six or more drinks on one occasion: Never AUDIT-C Alcohol total score: 0 Non-prescribed substance use: denies use How often does anyone, including family, friends and others, physically hurt you: never How often does anyone, including family, friends and others, insult or talk down to you: sometimes How often does anyone, including family, friends and others, threaten you with harm: never How often does anyone, including family, friends and others, scream or curse at you: rarely service: No Health Related Social Needs: Other personal risk factors, not elsewhere classified (Z91.89) Meds Home Medications and Allergies Home Medications ?Medication ?Instructions ?Recorded ?Confirmed ?Type docosahexaenoic acid 200 mg mg PO 08/21/23 09/23/24 History capsule ( DHA) doxylamine succinate 25 mg tablet 25 mg PO QHS 03/11/24 09/23/24 History (Unisom (doxylamine)) aspirin 81 mg tablet,delayed 81 mg PO QDAY 04/29/24 09/23/24 History release omeprazole magnesium 20 mg 20 mg PO QDAY 06/24/24 09/23/24 History tablet,delayed release (Prilosec OTC) hydroxyzine pamoate 25 mg capsule 25 - 50 mg PO QHS PRN 09/03/24 09/23/24 History Allergies Allergy/AdvReac Type Severity Reaction Status Date / Time fluoxetine Allergy Severe Depression Verified 09/23/24 11:29 Latex, Natural Rubber AdvReac Severe Rash Verified 09/23/24 11:29 Results Labs Labs: Laboratory Results - last 24 hr 09/23/24 09/23/24 13:00 13:09 WBC 7.70 RBC 4.03 Hgb 12.0 Hct 36.1 MCV 90 MCH 30 MCHC 33 Plt Count 190 BUN 5 Creatinine 0.8 Estimated Creat Clear 108.44 Estimated GFR 102 AST 24 ALT 16 Urine Creatinine 60.9 Protein/Creatinin Ratio 0.41 H Urine Total Protein 25 Blood Type O Negative Antibody Screen NEGATIVE Vital Signs Vital Signs: Last Vital Signs Temp 98.4 F 09/24/24 10:33 Pulse 77 09/24/24 11:12 Resp 16 09/24/24 10:33 BP 126/68 09/24/24 11:12 Pulse Ox 98 09/24/24 11:12 Weight: 108.409 kg Height: 175.26 cm Anesthesia Procedures Epidural Insertion Start Time: 10:30 Stop Time: 11:30 Start Date: 09/24/24 Stop Date: 09/24/24 Reason for Block: primary anesthetic Patient Position: sitting Performed By: Luiz Bartlett Preanesthetic Checklist: risks and benefits discussed and anesthesia consent Monitoring: blood pressure monitoring and continuous pulse oximetry Approach: midline Vertebral Space: lumbar (1-5) Epidural Technique: JAZMIN saline Needle Type: Tuohy needle Injection Technique: continuous catheter Needle gauge: 17 Needle Length (cm): 10 cm Needle Insertion Depth (cm): 9 Catheter Gauge: 19 Catheter Type: multi-orifice Catheter at skin depth (cm): 12 Test Dose Result: negative and lidocaine 1.5% with epinephrine 1 to 200,000
[2024-09-24] MEDS: MAGNESIUM IV 4 GM/100 ML PIGGYBACK IVPB (11:26)
[2024-09-24] MEDS: LACTATED RINGERS 1000 ML 1,000 ML 75 ML IV (11:27)
[2024-09-24 11:37] LABS: Hematocrit 35.2 % (33.0-51.0); Hemoglobin* 11.5 gm/dL (12.0-16.0); Mean Corpuscular HGB Conc 33 gm/dL (32-36); Mean Corpuscular Hemoglobin 30 pg (26-34); Mean Corpuscular Volume 91 fL (80-100); Platelet Count* 205 K/uL (140-440); Red Blood Count 3.87 m/uL (4.00-5.20)
--- NOTE | 2024-09-24 11:38 | PM.OBPNL ---
Subjective Time Seen by Provider: 14:30 Date Seen: 09/24/24 Narrative: Kita is a 29yo at 37w2d GA admitted for IOL in the setting of preeclampsia without severe features. otherwise is complicated by anxiety, panic attacks, subclinical hypothyroidism, elevated BMI and Rh negative. IOL has included cook catheter, pitocin titration and SROM around 0815 this morning. She is now comfortable with epidural in place, has been resting. Last check at 1010 by RN was 5.5/80/0. She has had a category 1 to 2 heart rate tracing, brief period of late decelerations secondary to hypotension that resolved with resuscitative efforts. Denies vaginal bleeding. No pelvic pressure. Objective Exam: General: Alert and oriented, in no acute distress Psych: Appropriate mood and affect Abdomen: Gravid, non-tender Cervix: 9/90/0 FHR: Category 1, baseline of 130bpm with moderate variability. 15x15 accelerations. No decelerations. [place]: Romelia q3-4 minutes Vital Signs: Last Vital Signs Temp 98.2 F 09/24/24 11:30 Pulse 82 09/24/24 11:35 Resp 16 09/24/24 11:30 BP 116/70 09/24/24 11:35 Pulse Ox 97 09/24/24 11:32 Plan Plan: Kita is a 29yo at 37w2d GA admitted for IOL in the setting of preeclampsia with severe features. otherwise is complicated by anxiety, panic attacks, subclinical hypothyroidism, elevated BMI and Rh negative. - IOL has included cook (spontaneously expressed around 2300), pitocin and SROM. Cervix is now 9/90/0. - BP monitoring ongoing, s/p one dose of IV labetolol. BPs have since been in the normal to mild range. Repeat HELLP labs are normal, trend Q6H. Magnesium sulfate ongoing, plan to continue for 24 hours . - Anticipate next exam in 2 hours, sooner as clinically indicated - BT O negative, plan cord blood at time of delivery and Rhogam per protocol - GBS negative
[2024-09-24 11:42] LABS: Slide Review Reflex No
[2024-09-24 11:57] LABS: Alanine Aminotransferase* 16 U/L (4-35); Aspartate Amino Transferase* 24 U/L (12-35); Blood Urea Nitrogen* 6 mg/dL (5-24); Creatinine* 0.8 mg/dL (0.5-1.5); Est. Creatinine Clearance* 108.44; Estimated Glomerular Filt Rate 102 ml/min
[2024-09-24] MEDS: MAGNESIUM Infusion 40 GM/1,000 ML IV.SOLN IVPB (12:03)
[2024-09-24] MEDS: PHENYLEPHRINE 100 MCG/ML SYRINGE IVP (12:42)
[2024-09-24 15:13] LABS: Creatinine Urine 84.7 mg/dL; Protein Creatinine Ratio Urine 0.54 (0-0.19)
[2024-09-24 15:14] LABS: Total Protein Urine 46 mg/dL
--- NOTE | 2024-09-24 16:39 | PM.OBPNL ---
Subjective Time Seen by Provider: 16:39 Date Seen: 09/24/24 Narrative: Kita is a 29yo at 37w2d GA admitted for IOL in the setting of preeclampsia without severe features. otherwise is complicated by anxiety, panic attacks, subclinical hypothyroidism, elevated BMI and Rh negative. IOL has included cook catheter, pitocin titration and SROM around 0815 this morning. She is resting comfortable with epidural. Was able to rest for a few hours. Objective Exam: General: Alert and oriented, in no acute distress Abdomen: Gravid, non-tender Cervix: 10/100/+1 FHR: Category 1, baseline of 130bpm with moderate variability. 15x15 accelerations. No decelerations at this time, previously has had intermittent variable decelerations. [place]: Romelia q3-4 minutes Vital Signs: Last Vital Signs Temp 98.2 F 09/24/24 16:31 Pulse 99 09/24/24 16:26 Resp 16 09/24/24 16:31 BP 134/83 09/24/24 16:26 Pulse Ox 96 09/24/24 16:38 Plan Plan: Kita is a 29yo at 37w2d GA admitted for IOL in the setting of preeclampsia with severe features. otherwise is complicated by anxiety, panic attacks, subclinical hypothyroidism, elevated BMI and Rh negative. - Cervix is now 10/100/+1, plan to start maternal pushing efforts - BP monitoring ongoing, s/p one dose of IV labetolol. BPs have since been in the normal to mild range. Repeat HELLP labs at 1130 were normal, trend Q6H. Magnesium sulfate ongoing, plan to continue for 24 hours . - BT O negative, plan cord blood at time of delivery and Rhogam per protocol - GBS negative
[2024-09-24] MEDS: ONDANSETRON 2 MG/ML inj 4 MG IV (17:18)
[2024-09-24] MEDS: miSOPROStoL 800 MCG/4 TABLET PR (18:54)
--- NOTE | 2024-09-24 19:15 | W.PM.VAGDEL1 ---
Procedure Delivery date: 09/24/24 Procedure Done: Global Procedure Details: Normal spontaneous vaginal delivery Vaginal laceration repair x2 Events: Pre-Eclampsia and Other (Depression, anxiety, subclinical hypothyroidism, GERD) Intrapartal Events: Labor Induction Delivery augmentation: pitocin Delivery monitor: external FHT Route of delivery: Episiotomy description: None Laceration description: Vaginal - 2nd Degree Delivery repair: Vicryl Estimated blood loss (mL): 550 Anesthesia type: Epidural Disposition: floor Complications: None Narrative: Kita is a 29yo at 37w2d GA admitted for IOL in the setting of preeclampsia, where she developed severe features intrapartum. otherwise is complicated by anxiety, panic attacks, subclinical hypothyroidism, elevated BMI and Rh negative. heart tones on admission were category 1. Her labor was induced with cook catheter and augmented with pitocin. SROM occurred at 0815, clear fluids. Epidural was utilized for pain management. heart tones during active labor were category 1 and 2. She was complete at 1631 and started pushing at 1651. She made excellent descent throughout the second stage of labor, and had a normal spontaneous vaginal delivery at 1833. heart tones during second stage of labor were category 1 and 2 for variable decelerations and periods of minimal variability. Baby delivered OA, restituted HERB and the anterior and posterior shoulders delivered without difficulty. Nuchal cord: present x1, delivered through and subsequently reduced. The cord was clamped and cut after delayed cord clamping. Active management of the third stage occurred with IV pitocin and gentle cord traction and the placenta delivered spontaneous and intact at 1833. Cord gases sent: yes Cord blood sent for infant ABO: yes details: - Liveborn male fetus at 1829 - weight pending at time of documentation - APGARs were 7 and 7 and 8 at 1, 5 and 10 minutes respectively - FACULTY PHYSICIAN was notified for delivery, arrived a few minutes after delivery. Baby did receive 3 minutes of CPAP and blow by oxygen briefly, was transferred to maternal chest in stable condition while repair was ongoing. - Cord gas was obtained and sent - suspect arterial and venous samples were mislabeled. pH of VBG in EMR (actually the ABG clinically) was 1.17, CO2 of 60, base excess -7.8 consistent with mild mixed acidosis. She had intermittent lower uterine atony following delivery, treated with bimanual massage and cytotec 800mcg per rectum with significant improvement in tone. Perineum and vagina were inspected, and the following lacerations were noted: deep vaginal laceration just left of midline, small right vaginal laceration. Repair was completed in the usual fashion with 3-0 under existing epidural analgesia. Excellent hemostasis was noted. The following counts were correct: sponges, needles, instruments. Mother and in stable condition following the . [place] Gender: Male presentation: vertex Placental Delivery Description: Spontaneous Cord Description: 3 Vessels
[2024-09-24 19:16] LABS: Hematocrit 35.3 % (33.0-51.0); Hemoglobin* 11.6 gm/dL (12.0-16.0); Mean Corpuscular HGB Conc 33 gm/dL (32-36); Mean Corpuscular Hemoglobin 30 pg (26-34); Mean Corpuscular Volume 90 fL (80-100); Platelet Count* 112 K/uL (140-440); Red Blood Count 3.93 m/uL (4.00-5.20); White Blood Count* 12.52 K/uL (4.50-11.00)
[2024-09-24 19:17] LABS: Slide Review Reflex No
[2024-09-24 19:31] LABS: Alanine Aminotransferase* 15 U/L (4-35); Aspartate Amino Transferase* 30 U/L (12-35); Blood Urea Nitrogen* 8 mg/dL (5-24); Est. Creatinine Clearance* 86.75; Estimated Glomerular Filt Rate 78 ml/min
[2024-09-24] MEDS: NIFEdipine 30 MG TAB.ER.24 PO (19:50)
[2024-09-24 19:51] LABS: Magnesium* 5.7 mg/dL (1.5-2.6)
[2024-09-24] MEDS: LACTATED RINGERS 1000 ML 1,000 ML 35 ML IV (22:47)
[2024-09-24] MEDS: LEVOTHYROXINE 25 MCG TABLET PO (23:16)
[2024-09-24] MEDS: BUSPIRONE 5 MG TAB PO (23:17)
[2024-09-24] MEDS: ACETAMINOPHEN 500 MG TABLET 1000 MG PO (23:19)
[2024-09-25] VITALS (12 sets, daily range): BP systolic 108–134; BP diastolic 71–87; PULSE 77–94; RESP 16–22; TEMP 36.4–37.1; O2SAT 95–98
[2024-09-25 01:34] LABS: Hematocrit 31.5 % (33.0-51.0); Hemoglobin* 10.6 gm/dL (12.0-16.0); Mean Corpuscular HGB Conc 34 gm/dL (32-36); Mean Corpuscular Hemoglobin 30 pg (26-34); Mean Corpuscular Volume 89 fL (80-100); Platelet Count* 193 K/uL (140-440); Red Blood Count 3.55 m/uL (4.00-5.20); White Blood Count* 14.56 K/uL (4.50-11.00)
[2024-09-25 01:37] LABS: Slide Review Reflex No
[2024-09-25 01:49] LABS: Blood Urea Nitrogen* 7 mg/dL (5-24); Creatinine* 0.9 mg/dL (0.5-1.5); Est. Creatinine Clearance* 96.39; Estimated Glomerular Filt Rate 89 ml/min
[2024-09-25 01:50] LABS: Alanine Aminotransferase* 26 U/L (4-35); Aspartate Amino Transferase* 51 U/L (12-35)
[2024-09-25 02:13] LABS: Magnesium* 5.9 mg/dL (1.5-2.6)
[2024-09-25] MEDS: MAGNESIUM Infusion 40 GM/1,000 ML IV.SOLN IVPB (06:47)
[2024-09-25 07:18] LABS: Hematocrit 32.3 % (33.0-51.0); Hemoglobin* 10.7 gm/dL (12.0-16.0); Mean Corpuscular HGB Conc 33 gm/dL (32-36); Mean Corpuscular Hemoglobin 30 pg (26-34); Mean Corpuscular Volume 90 fL (80-100); Platelet Count* 181 K/uL (140-440); Red Blood Count 3.58 m/uL (4.00-5.20); White Blood Count* 11.44 K/uL (4.50-11.00)
[2024-09-25 07:31] LABS: Slide Review Reflex No
[2024-09-25 07:36] LABS: Alanine Aminotransferase* 16 U/L (4-35); Aspartate Amino Transferase* 35 U/L (12-35); Blood Urea Nitrogen* 8 mg/dL (5-24); Creatinine* 0.9 mg/dL (0.5-1.5); Est. Creatinine Clearance* 96.39; Estimated Glomerular Filt Rate 89 ml/min
[2024-09-25 07:43] LABS: Magnesium* 6.5 mg/dL (1.5-2.6)
[2024-09-25] MEDS: DOCUSATE SODIUM 100 MG CAPSULE PO (08:00)
[2024-09-25] MEDS: IBUPROFEN 600 MG TABLET PO ×3 (08:00→21:31)
--- NOTE | 2024-09-25 08:05 | PM.OBPNVD1 ---
OB - PN:Subj Subjective Time Seen by Provider: 08:00 Date Seen: 09/25/24 Patient comments OB post-: pain well controlled, tolerating diet and flatus present status: [place] feeding status: exclusively Narrative: Kita bedside she is feeling well. She feels somewhat drowsy on magnesium but she feels it is improved since last night. She understands that the magnesium is recommended to continue until she is 24 hours which will be in about 6:30pm tonight. Her blood pressures have been normal since midnight. Reviewed with her that it is not unusual to require titration nerve blood pressure medicine to a higher dose after the magnesium is discontinued. She reports her pain is well controlled with Tylenol and ibuprofen. Her preeclampsia labs at 7:00 a.m. this morning were: Hemoglobin 10.7, platelets 181 K, BUN 8, creatinine 0.9, AST 35, ALT 16. She denies headache, right upper quadrant pain, visual disturbance and swelling. She has been tolerating a regular diet, ambulating with assist and passing flatus. OB - PN: Obj Exam Physical Exam: Vital signs: Temp Pulse Resp BP Pulse Ox O2 Del Method 97.5 F L 81 16 126/87 98 Room Air 09/25/24 07:28 09/25/24 07:28 09/25/24 07:28 09/25/24 07:28 09/25/24 07:28 09/25/24 07:28 Narrative: General: Pleasant, , well groomed woman in no acute distress. Vital signs: Included in her electronic medical record. Heart: Regular rate and rhythm without gallop, rub or murmur. Chest: Clear to auscultation bilaterally. Abdomen: Soft, nontender and nondistended with normal bowel sounds throughout. Fundus is firm at 1 cm below the umbilicus in the midline. Lochia: Small rubra Extremities: No pain or edema. OB - PN: Obj Data Labs Labs: Laboratory Results - last 24 hr 09/24/24 09/24/24 09/24/24 11:30 12:34 19:10 WBC 9.60 12.52 H RBC 3.87 L 3.93 L Hgb 11.5 L 11.6 L Hct 35.2 35.3 MCV 91 90 MCH 30 30 MCHC 33 33 Plt Count 205 112 L BUN 6 8 Creatinine 0.8 1.0 Estimated Creat Clear 108.44 86.75 Estimated GFR 102 78 Magnesium 5.7 H* AST 24 30 ALT 16 15 Urine Creatinine 84.7 Protein/Creatinin Ratio 0.54 H Urine Total Protein 46 09/25/24 09/25/24 01:28 07:11 WBC 14.56 H 11.44 H RBC 3.55 L 3.58 L Hgb 10.6 L 10.7 L Hct 31.5 L 32.3 L MCV 89 90 MCH 30 30 MCHC 34 33 Plt Count 193 181 BUN 7 8 Creatinine 0.9 0.9 Estimated Creat Clear 96.39 96.39 Estimated GFR 89 89 Magnesium 5.9 H* 6.5 H* AST 51 H 35 ALT 26 16 Urine Creatinine Protein/Creatinin Ratio Urine Total Protein OB - PN: A/P Delivery Assessment and Plan (1) Gestational hypertension: Status: Inactive (2) Preeclampsia, severe: Status: Acute Assessment and Plan: 1. Continue magnesium sulfate for seizure prophylaxis until 6:30 p.m. today. 2. Continue nifedipine ER 30 mg p.o. q.h.s. and modified dose as needed for elevated blood pressure. 3. Possible discharge home on 09/26/2024 or 09/27/2024.
[2024-09-25] MEDS: BUSPIRONE 5 MG TAB PO ×2 (11:30→18:58)
--- NOTE | 2024-09-25 11:52 | PM.ANPOST ---
Post Anesthesia Note Post Anesthesia Note Patient seen: Inpatient Respiratory Status: adequate Cardiovascular Status: adequate Mental Status: baseline Pain: adequate Temp: baseline Anesthetic awareness: N/A Complications: none Follow care: none
[2024-09-25 13:31] LABS: Hematocrit 29.4 % (33.0-51.0); Hemoglobin* 9.7 gm/dL (12.0-16.0); Mean Corpuscular HGB Conc 33 gm/dL (32-36); Mean Corpuscular Hemoglobin 30 pg (26-34); Mean Corpuscular Volume 91 fL (80-100); Platelet Count* 174 K/uL (140-440); Red Blood Count 3.23 m/uL (4.00-5.20); White Blood Count* 10.07 K/uL (4.50-11.00)
[2024-09-25 13:39] LABS: Slide Review Reflex No
[2024-09-25 13:55] LABS: Alanine Aminotransferase* 14 U/L (4-35); Aspartate Amino Transferase* 32 U/L (12-35); Blood Urea Nitrogen* 9 mg/dL (5-24); Creatinine* 0.9 mg/dL (0.5-1.5); Est. Creatinine Clearance* 96.39; Estimated Glomerular Filt Rate 89 ml/min
[2024-09-25 13:58] LABS: Magnesium* 6.5 mg/dL (1.5-2.6)
[2024-09-25] MEDS: ACETAMINOPHEN 500 MG TABLET 1000 MG PO (17:13)
[2024-09-25] MEDS: LEVOTHYROXINE 25 MCG TABLET PO (18:59)
[2024-09-25] MEDS: LACTATED RINGERS 1000 ML 1,000 ML 75 ML IV ×2 (19:01)
[2024-09-25 19:24] LABS: Hematocrit 28.3 % (33.0-51.0); Hemoglobin* 9.3 gm/dL (12.0-16.0); Mean Corpuscular HGB Conc 33 gm/dL (32-36); Mean Corpuscular Hemoglobin 30 pg (26-34); Mean Corpuscular Volume 92 fL (80-100); Platelet Count* 177 K/uL (140-440); Red Blood Count 3.07 m/uL (4.00-5.20); White Blood Count* 9.26 K/uL (4.50-11.00)
[2024-09-25 19:36] LABS: Slide Review Reflex No
[2024-09-25 19:42] LABS: Alanine Aminotransferase* 14 U/L (4-35); Aspartate Amino Transferase* 31 U/L (12-35); Blood Urea Nitrogen* 9 mg/dL (5-24); Creatinine* 0.9 mg/dL (0.5-1.5); Est. Creatinine Clearance* 96.39; Estimated Glomerular Filt Rate 89 ml/min
[2024-09-25 19:56] LABS: Magnesium* 5.8 mg/dL (1.5-2.6)
[2024-09-25] MEDS: NIFEdipine 30 MG TAB.ER.24 PO (21:31)
[2024-09-26 01:34] LABS: Hematocrit 28.5 % (33.0-51.0); Hemoglobin* 9.3 gm/dL (12.0-16.0); Mean Corpuscular HGB Conc 33 gm/dL (32-36); Mean Corpuscular Hemoglobin 30 pg (26-34); Mean Corpuscular Volume 93 fL (80-100); Platelet Count* 166 K/uL (140-440); Red Blood Count 3.06 m/uL (4.00-5.20); White Blood Count* 8.45 K/uL (4.50-11.00)
[2024-09-26 01:41] LABS: Slide Review Reflex No
[2024-09-26 01:48] LABS: Alanine Aminotransferase* 13 U/L (4-35); Aspartate Amino Transferase* 30 U/L (12-35); Blood Urea Nitrogen* 11 mg/dL (5-24); Creatinine* 0.9 mg/dL (0.5-1.5); Est. Creatinine Clearance* 96.39; Estimated Glomerular Filt Rate 89 ml/min
[2024-09-26 01:53] LABS: Magnesium* 4.1 mg/dL (1.5-2.6)
[2024-09-26 02:20] VITALS: BP 129/85; PULSE 77; RESP 20; TEMP 36.5; O2SAT 97
[2024-09-26 04:30] VITALS: BP 134/88; PULSE 73; RESP 18; TEMP 36.3
[2024-09-26] MEDS: IBUPROFEN 600 MG TABLET PO ×2 (04:37→15:21)
[2024-09-26 09:00] VITALS: BP 123/88; PULSE 75; RESP 16; TEMP 36.8; O2SAT 97
[2024-09-26] MEDS: DOCUSATE SODIUM 100 MG CAPSULE PO (09:44)
[2024-09-26] MEDS: ACETAMINOPHEN 500 MG TABLET 1000 MG PO (09:56)
--- NOTE | 2024-09-26 12:51 | PM.OBPNVD1 ---
OB - PN:Subj Subjective Time Seen by Provider: 12:52 Date Seen: 09/26/24 Narrative: Overnight patient had no complaints. Her pain is well controlled on oral pain medications. She is tolerating a regular. She as passed flatus. She is ambulating without difficulty. Lochia is scant. She is urinating without díaz. Patient denies chest pain, SOB, n/v, headache, RUQ pain, vision changes, dizziness. OB - PN: Obj Exam Physical Exam: Vital signs: Temp Pulse Resp BP Pulse Ox O2 Del Method 98.2 F 75 16 123/88 97 Room Air 09/26/24 09:00 09/26/24 09:00 09/26/24 09:00 09/26/24 09:00 09/26/24 09:00 09/26/24 09:00 Narrative: Physical exam: General: No acute distress Psych: Alert and oriented x4, full affect HEENT: Normocephalic, atraumatic Heart: Regular rate and rhythm, no murmur rub or gallop Lungs: Clear to auscultation bilaterally Abdomen: Normoactive bowel sounds, soft, no tenderness, rebound, or guarding, no masses, no hepatosplenomegaly, no hernias Skin: No lesions or rashes Breasts: no nodules or masses, no nipple discharge, no axillary adenopathy Lower extremities: No edema or erythema Pelvic exam: Scant lochia OB - PN: Obj Data Labs Labs: Laboratory Results - last 24 hr 09/25/24 09/25/24 09/25/24 13:10 13:15 19:18 WBC 10.07 9.26 RBC 3.23 L 3.07 L Hgb 9.7 L 9.3 L Hct 29.4 L 28.3 L MCV 91 92 MCH 30 30 MCHC 33 33 Plt Count 174 177 BUN 9 9 Creatinine 0.9 0.9 Estimated Creat Clear 96.39 96.39 Estimated GFR 89 89 Magnesium 6.5 H* 5.8 H* AST 32 31 ALT 14 14 09/26/24 01:25 WBC 8.45 RBC 3.06 L Hgb 9.3 L Hct 28.5 L MCV 93 MCH 30 MCHC 33 Plt Count 166 BUN 11 Creatinine 0.9 Estimated Creat Clear 96.39 Estimated GFR 89 Magnesium 4.1 H* AST 30 ALT 13 OB - PN: A/P Delivery Assessment and Plan (1) Preeclampsia, severe: Start date: 09/26/24 Status: Acute (2) Acute blood loss anemia: Status: Acute Assessment and Plan: EBL 550 Hgb 12.0 on 09/23/24 --> 9.3 on 09/26/24 Asymptomatic Will start PO iron Plan 1. s/p 24 hours of magnesium sulfate for seizure prophylaxis at 1830 on 09/25. Will monitor for additional 24 hours off magnesium sulfate 2. Continue nifedipine ER 30 mg p.o. q.h.s. and modified dose as needed for elevated blood pressure. 3. Discharge home on 09/27/2024.
[2024-09-26 13:00] VITALS: BP 122/80; PULSE 78; RESP 16; TEMP 36.6; O2SAT 97
[2024-09-26] MEDS: BUSPIRONE 5 MG TAB PO (19:15)
[2024-09-26] MEDS: LEVOTHYROXINE 25 MCG TABLET PO (19:15)
[2024-09-26 20:00] VITALS: BP 120/82; PULSE 70; RESP 16; TEMP 36.7; O2SAT 97
[2024-09-26] MEDS: NIFEdipine 30 MG TAB.ER.24 PO (22:15)
[2024-09-26 22:41] VITALS: BP 122/87; PULSE 88; RESP 16; O2SAT 96
[2024-09-27 03:45] VITALS: BP 150/100; PULSE 90; RESP 16; O2SAT 96
[2024-09-27 03:57] VITALS: BP 132/87; PULSE 86; RESP 16; TEMP 36.8; O2SAT 97
[2024-09-27 06:00] VITALS: BP 133/89; PULSE 81; RESP 22; O2SAT 97
--- NOTE | 2024-09-27 07:41 | PM.OBDSVD1 ---
DS: Providers Provider Time Seen by Provider: 09:36 Date Seen: 09/27/24 Date of admission: 09/23/24 12:16 Primary care physician: Alisa Drake CNP Admitting Clinician: Treva Beltran MD Attending Physician on discharge: Christina Green MD Date of Discharge: 09/27/24 DS: Diagnosis Discharge Diagnosis (1) Preeclampsia, severe: Status: Acute (2) Normal spontaneous vaginal delivery: Status: Acute Exam Narrative: Exam Narrative: General: Pleasant, , well groomed woman in no acute distress. Vital signs: Included in her electronic medical record. Heart: Rate and rhythm without gallop, rub or murmur. Chest: Clear to auscultation bilaterally. Abdomen: Soft, nontender and nondistended with normal bowel sounds. Fundus firm at the midline L below the umbilicus. Extremities: No pain. Edema: None. Const: Vital Signs, click to edit/add: Vital Signs - 24 hr 09/26/24 09:00 09/26/24 13:00 09/26/24 20:00 Temperature 98.2 F 97.8 F 98.0 F Pulse Rate [Pulse Oximeter] 75 78 70 Respiratory Rate 16 16 16 Blood Pressure [Le ft Arm] 123/88 122/80 120/82 Pulse Oximetry 97 97 97 Oxygen Delivery Me thod Room Air Room Air Room Air 09/26/24 22:41 09/27/24 03:45 09/27/24 03:57 Temperature 98.3 F Pulse Rate [Pulse Oximeter] 88 90 86 Respiratory Rate 16 16 16 Blood Pressure [Le ft Arm] 122/87 150/100 H 132/87 Pulse Oximetry 96 96 97 Oxygen Delivery Me thod Room Air Room Air Room Air 09/27/24 06:00 Temperature Pulse Rate [Pulse Oximeter] 81 Respiratory Rate 22 Blood Pressure [Le ft Arm] 133/89 Pulse Oximetry 97 Oxygen Delivery Me thod Room Air OB - DS: Summary Hospital Course Hospital Course: The patient is a 29 year old G 2 P now 1 at 37w1d gestation that was admitted to the Center on 09/23/24 for induction of the labor due to preeclampsia with severe features. She had an uncomplicated vaginal delivery. She delivered a viable male . She is breast feeding. the patient has done well. Her blood pressures been under good control with nifedipine ER 30 mg daily. The baby has had some issues with jaundice and weight loss and her breast milk has not come in yet so she is feeling somewhat frustrated and anxious. She was reassured. Peripartum Data Infant delivery method: Vaginal Laceration description: Perineal - 2nd Degree [place] Gender: Male Time Spent with Patient Time attestation: Total time spent providing and/or coordinating discharge services: Discharge Plan Discharge Disposition: Home, Self-Care Date of Admission: 09/23/24 12:16 Attending Provider on Discharge: Christina Green Primary Care Provider: Alisa Drake Condition: Improved Anticipated Discharge Date/Time: 09/27/24 12:30 Discharge Medications: New nifedipine 30 mg Tablet Extended Release 24hr 30 mg PO HS Qty: 60 0RF ferrous sulfate 325 mg (65 mg iron) Tablet 325 mg PO Q48H Qty: 60 0RF docusate sodium 100 mg Capsule 100 mg PO DAILY Qty: 100 0RF ibuprofen 600 mg Tablet 600 mg PO Q6H PRNQty: 30 0RF Continued DHA 200 mg capsule PO hydroxyzine pamoate 25 mg capsule 25 - 50 mg PO QHS PRN omeprazole magnesium [Prilosec OTC] 20 mg tablet,delayed release (DR/EC) 20 mg PO QDAY buspirone 5 mg tablet 5 mg PO BID Qty: 60 1RF levothyroxine 25 mcg tablet 25 mcg PO QDAY Qty: 30 3RF venlafaxine 225 mg tablet extended release 24hr 225 mg PO QDAY Qty: 30 0RF Discontinued Unisom (doxylamine) 25 mg tablet 25 mg PO QHS Patient Comments: pt cuts in half at bedtime. aspirin 81 mg tablet,delayed release (DR/EC) 81 mg PO QDAY metoclopramide HCl [Reglan] 10 mg tablet 10 mg PO Q6H PRN (Reason: nausea and vomiting) Qty: 60 3RF Discharge Orders: Discharge Order (Routine); Ordered 09/27/24 Ordered By: Christina Green Patient Education: Preeclampsia During (DC), Bleeding (DC), Vaginal Delivery (DC) Additional Instructions: Discharge instructions were reviewed with the patient including signs and symptoms of infection and home going medications Activity Restrictions: Nothing vaginally for 6 weeks: no tampons or intercourse Off Work or School for a minimum of 6 weeks Symptoms to report to doctor: Bleeding that saturates more than one pad per hour Passing clots larger than the size of a golf ball Pain not relieved by prescribed medication Fever above 100.4 degrees Fahrenheit A foul vaginal odor Difficulty in emotions, mood, and functions Thoughts of hurting yourself and/or Painful, reddened area in your breast Any drainage, redness, or tenderness in your IV/epidural site Severe headache that doesn't improve after taking medications Changes in vision, including temporary loss of vision, blurred vision, and/or light sensitivity Upper abdominal pain (usually under ribs on the right side) Decrease in urination or painful, frequent urinating Chest pain Shortness of breath Tenderness or pain with redness and/swelling in the calf(s) of your leg [facility] for a BP check?09/30/2024 Call the clinic with BP greater than or equal to 160/110 or less than 90/60 Optional 2-week visit: incision check, discuss infant feeding concerns, review control options and screen for anxiety/depression. 6-week visit for an annual exam. consultation services are available to all mothers and babies for the first year after delivery.? To make an appointment, please call [phone]. Activity Level: Other Discharge Diet: Regular Follow Up Appointments: Alisa Drake CNP [Primary Care Provider] - [facility] [Other] Forms: [employer] Info Instructions
[2024-09-27 10:50] VITALS: BP 129/88; PULSE 83; RESP 16; TEMP 36.9; O2SAT 97
[2024-09-27 13:39] VITALS: BP 128/87; PULSE 87; RESP 16; TEMP 36.8; O2SAT 97
[2024-09-27] MEDS: IBUPROFEN 600 MG TABLET PO (13:40)
[2024-09-27] MEDS: FERROUS SULFATE 325 MG TABLET PO (13:40)
[2024-09-27] MEDS: NIFEdipine 30 MG TAB.ER.24 PO (13:40)
[2024-09-27] MEDS: DOCUSATE SODIUM 100 MG CAPSULE PO (13:41)
[2024-09-27] MEDS: LANOLIN CREAM 1 APPLIC TOPICAL (16:06)
== END 2024-09-27 16:25 | disposition home or self-care (01) | DRG 560 ==
PROVIDERS: Obstetrics & Gynecology; Admitting Provider Obstetrics & Gynecology; PCP Family Medicine; Visit Provider Obstetrics & Gynecology
DX: O14.14 Severe pre-eclampsia complicating childbirth (principal); O62.2 Other uterine inertia; D62 Acute posthemorrhagic anemia; O90.81 Anemia of the puerperium; O70.1 Second degree perineal laceration during delivery; O26.893 Other specified pregnancy related conditions, third trimester; Z67.41 Type O blood, Rh negative; O99.344 Other mental disorders complicating childbirth; F43.20 Adjustment disorder, unspecified; Z63.5 Disruption of family by separation and divorce; F41.9 Anxiety disorder, unspecified; F41.0 Panic disorder [episodic paroxysmal anxiety]; F32.A Depression, unspecified; O99.284 Endocrine, nutritional and metabolic diseases complicating childbirth; E03.8 Other specified hypothyroidism; Z3A.37 37 weeks gestation of pregnancy; Z37.0 Single live birth
CPT/HCPCS: 01967; 36415; 59200; 82565; 82570; 83735; 84156; 84450; 84460; 84520; 85025; 85027; 86592; 86850; 86900; 86901; 88307; 88341; 88342; A9270; C1726; J2270; J2371; J2405; J2795; J3010; J3475; J7120

== ENCOUNTER 2024-11-05 11:55 | Outpatient (CLI) | payer BC, SELFPAY | END 2024-11-05 11:56 | disposition home or self-care (01) | PROVIDERS: PCP Family Medicine; Visit Provider Registered Nurse | DX: E03.8 Other specified hypothyroidism (principal); D64.9 Anemia, unspecified; Z39.2 Encounter for routine postpartum follow-up | CPT/HCPCS: 82728; 84443 ==

== ENCOUNTER 2024-11-11 15:43 | Outpatient (CLI) | payer BC, SELFPAY ==
--- NOTE | 2024-11-11 15:45 | CRLHL7_ITS ---
For Patients: As a result of the Century Cures Act, medical imaging exams and procedure reports are released immediately into your electronic medical record. You may view this report before your referring provider. If you have questions, please contact your health care provider. INDICATION: Immediate hemorrhage COMPARISON: none TECHNIQUE: 2D reaves scale and color Doppler images were acquired of the pelvis using a transabdominal and transvaginal approach. FINDINGS: Sonographic images demonstrate a normal size and smooth outer contour of the uterus. Uterus measures 6.7 cm in length by 4.1 cm in AP diameter by 4.5 cm in transverse dimension. The myometrium has a normal uniform echotexture. No abnormal vascularity. The endometrial lining measures 3 mm in composite thickness. A small amount of fluid is present within the endometrial canal. The right ovary measures 3.7 x 1.9 x 2.3 cm in size and the left ovary measures 5.4 x 2.9 x 4.1 cm. The ovaries demonstrate normal arterial and venous blood flow on color Doppler analysis. There are no suspicious fluid collections within the cul-de-sac. Simple circumscribed cyst left ovary measures 3.4 x 2.5 x 3.6 cm. IMPRESSION: Endometrial thickness 3 millimeters. A small amount of endometrial fluid noted. No abnormal vascularity. Dictated by Cesar Quiroz MD @ 11/11/2024 6:59:25 PM (Electronically Signed)
== END 2024-11-11 15:44 | disposition home or self-care (01) ==
LOC: US 15:45
PROVIDERS: PCP Family Medicine; Visit Provider Registered Nurse
DX: O72.1 Other immediate postpartum hemorrhage (principal)
CPT/HCPCS: 76830; 76856

== ENCOUNTER 2025-05-26 18:15 | Outpatient (CLI) | payer BC, SELFPAY | END 2025-05-26 18:16 | disposition home or self-care (01) | LOC: NFLDREF 05-28 18:03 | PROVIDERS: PCP Family Medicine; Referring Provider Family Medicine; Visit Provider Registered Nurse | DX: E03.8 Other specified hypothyroidism (principal); Z01.812 Encounter for preprocedural laboratory examination | CPT/HCPCS: 82728; 84443 ==